=== PATIENT | female | born 1950 | race Caucasian/White ===

== ENCOUNTER 2016-07-27 18:13 | Emergency (ER) | payer MEDICARE, BC ==
[~2016-07-27] VITALS: Ht 167.6 cm; Wt 90.0 kg
[~2016-07-27 18:13] MED LIST: ABIL2TAB2 PO; AMOX875T PO; ARTH650T6 PO; ASPI1TAB69 PO; CALC1TAB87 PO; CYMB60CA PO; HYDR-3580 PO; LISI20TA3 PO; MUCI30TA2 PO; POTA-245 PO; SIMV20TA PO; SUDA30TA2 PO; WEST0.2O TOPICAL
[2016-07-27 18:15] VITALS: BP 177/101; PULSE 127; RESP 22; TEMP 98.3; O2SAT 97
--- NOTE | 2016-07-27 18:41 | PD ---
HPI Chief Complaint: Cold / Flu Symptoms Time Seen by Provider: 18:29 Travel History International Travel<30 days: No Contact w/Intl Traveler<30days: No Traveled to known affect area: No History of Present Illness HPI 65-year-old female here for evaluation of cough, dyspnea, generalized malaise. Symptoms of it going on for last week. She was started on Augmentin one week ago by an urgent care facility. She states that she was seen by the nurse practitioner in her primary care physician's office today who advised that she present to the emergency department for a chest x-ray for likely pneumonia. Cough is nonproductive, however the patient has had rhinorrhea that has been greenish. She denies chest pain. She has had subjective fevers and chills. Dyspnea is at rest, worse with exertion. No history of DVT or PE. She quit smoking in the . [facility] Social History Alcohol Use: Yes Tobacco Use: No (former smoker) Allergies-Medications (Allergen,Severity, Reaction): Coded Allergies: Compazine (Verified Allergy, Severe, 07/27/16) Sulfa (Verified Allergy, Severe, 07/27/16) Reported Meds & Prescriptions Reported Meds & Active Scripts Active Levaquin (Levofloxacin) 500 Mg Tab 500 Mg PO DAILY 7 Days Prednisone 50 Mg Tab 50 Mg PO DAILY 5 Days Reported Amlodipine (Amlodipine Besylate) 10 Mg Tab 10 Mg PO DAILY Cymbalta DR (Duloxetine HCl) 60 Mg Capdr 60 Mg PO HS Sudafed (Pseudoephedrine HCl) 30 Mg Tab 30 Mg PO Q6H PRN Mucinex DM (Dextromethorphan-Guaifenesin) 30-600 Mg Tab 1 Tab PO BID PRN Amoxicillin 875 Mg Tab 875 Mg PO BID Hydrocodone-Acetaminophen 7.5-325 mg Tab 1 Tab PO Q6H PRN Aspirin 81 Mg Tabdr 81 Mg PO DAILY Lisinopril-Hctz 20-25 Mg Tab 1 Tab PO DAILY Arthritis Pain Reliever ER 8 HR (Acetaminophen) 650 Mg Tab 650 Mg PO Q8HR PRN Abilify (Aripiprazole) 2 Mg Tab 2 Mg PO DAILY Cymbalta DR (Duloxetine HCl) 60 Mg Capdr 60 Mg PO DAILY Simvastatin 20 Mg Tab 20 Mg PO DAILY Klor-Con M20 (Potassium Chloride Microencaps) 20 Meq Tab 20 Meq PO DAILY Calcium 600 with Vitamin D (Calcium Carbonate-Cholecalciferol) 600-400 mg-Unit Tab 1 Tab PO DAILY Review of Systems Except as stated in HPI: all other systems reviewed are Neg Physical Exam Narrative GENERAL: Well-developed, well-nourished, no acute distress. SKIN: Warm and dry. HEAD: Atraumatic. Normocephalic. EYES: Pupils equal and round. No scleral icterus. No injection or drainage. ENT: Mucous membranes pink and moist. NECK: Trachea midline. No JVD. CARDIOVASCULAR: Regular rate and rhythm. No murmur appreciated. RESPIRATORY: Coughing. Coarse breath sounds bilaterally with end expiratory wheezes bilaterally, no rales, no accessory muscle use. Speaking full sentences. GASTROINTESTINAL: Abdomen soft, non-tender, nondistended. MUSCULOSKELETAL: No obvious deformities. No clubbing. No cyanosis. No edema. NEUROLOGICAL: Awake and alert. No obvious cranial nerve deficits. Motor grossly within normal limits. Normal speech. PSYCHIATRIC: Appropriate mood and affect; insight and judgment normal. Data Data Last Documented VS Vital Signs Date Time Temp Pulse Resp B/P Pulse Ox O2 Delivery O2 Flow Rate FiO2 07/27/16 19:00 94 Room Air 07/27/16 18:54 21 07/27/16 18:45 93 18 142/79 07/27/16 18:15 98.3 Orders Complete Blood Count With Diff (07/27/16 18:32) Comprehensive Metabolic Panel (07/27/16 18:32) B-Type Natriuretic Peptide (07/27/16 18:32) Act Partial Throm Time (Ptt) (07/27/16 18:32) Prothrombin Time / Inr (Pt) (07/27/16 18:32) Influenzae A/B Antigen (07/27/16 18:32) Blood Culture (07/27/16 18:32) Iv Access Insert/Monitor (07/27/16 18:32) Ecg Monitoring (07/27/16 18:32) Oximetry (07/27/16 18:32) Oxygen Administration (07/27/16 18:32) Chest, Single Ap (07/27/16 18:32) Sodium Chloride 0.9% Flush (Ns Flush) (07/27/16 18:45) Methylprednisolone So Succ Inj (Solumedr (07/27/16 18:45) Albuterol-Ipratropium Neb (Duoneb Neb) (07/27/16 18:45) Lactic Acid (07/27/16 18:32) Sodium Chlor 0.9% 1000 Ml Inj (Ns 1000 M (07/27/16 19:45) Electrocardiogram (07/27/16 ) Potassium Chloride (Kcl) (07/27/16 21:30) Levofloxacin (Levaquin) (07/27/16 21:30) Labs Laboratory Tests Test 07/27/16 18:55 White Blood Count 12.4 TH/MM3 Red Blood Count 4.42 MIL/MM3 Hemoglobin 13.2 GM/DL Hematocrit 38.3 % Mean Corpuscular Volume 86.7 FL Mean Corpuscular Hemoglobin 30.0 PG Mean Corpuscular Hemoglobin 34.6 % Concent Red Cell Distribution Width 13.2 % Platelet Count 211 TH/MM3 Mean Platelet Volume 8.8 FL Neutrophils (%) (Auto) 73.0 % Lymphocytes (%) (Auto) 17.3 % Monocytes (%) (Auto) 6.5 % Eosinophils (%) (Auto) 2.5 % Basophils (%) (Auto) 0.7 % Neutrophils # (Auto) 9.0 TH/MM3 Lymphocytes # (Auto) 2.1 TH/MM3 Monocytes # (Auto) 0.8 TH/MM3 Eosinophils # (Auto) 0.3 TH/MM3 Basophils # (Auto) 0.1 TH/MM3 CBC Comment DIFF FINAL Differential Comment Prothrombin Time 11.2 SEC Prothromb Time International 1.0 RATIO Ratio Activated Partial 29.7 SEC Thromboplast Time Sodium Level 141 MEQ/L Potassium Level 2.8 MEQ/L Chloride Level 102 MEQ/L Carbon Dioxide Level 30.8 MEQ/L Anion Gap 8 MEQ/L Blood Urea Nitrogen 17 MG/DL Creatinine 1.03 MG/DL Estimat Glomerular Filtration 54 ML/MIN Rate Random Glucose 162 MG/DL Lactic Acid Level 1.3 mmol/L Calcium Level 9.3 MG/DL Total Bilirubin 0.6 MG/DL Aspartate Amino Transf 18 U/L (AST/SGOT) Alanine Aminotransferase 25 U/L (ALT/SGPT) Alkaline Phosphatase 76 U/L B-Type Natriuretic Peptide 7 PG/ML Total Protein 7.7 GM/DL Albumin 4.2 GM/DL MDM Medical Decision Making Medical Screen Exam Complete: Yes Emergency Medical Condition: Yes Medical Record Reviewed: Yes Interpretation(s) EKG: Sinus, rate 101, leftward axis, normal intervals, frequent supraventricular premature complexes, no acute ischemic abnormality. Differential Diagnosis Bronchitis, pneumonia, reactive airway disease, pulmonary edema, PE, pneumothorax Narrative Course Initial vital signs show heart rate 127, blood pressure 177/101, pulse ox 97% on room air, oral temp of 98.3F. The patient had just received an albuterol nebulized treatment prior to arrival, likely contributing to her tachycardia. Repeat heart rate is 93. CBC is essentially unremarkable. CMP is remarkable for potassium 2.8, random glucose 162, otherwise essentially unremarkable Lactic acid is 1.3. Influenza is negative. Chest x-ray: Trace bibasilar atelectasis The patient was given 3 DuoNeb treatments and IV Solu-Medrol. She is feeling somewhat improved and is resting comfortably. She is in no respiratory distress. Potassium replaced orally. Patient feels well enough to go home. She already has an albuterol inhaler. I will give her a prescription for Levaquin and prednisone. PMD follow-up this week. She was informed on when to return to the emergency department. She verbalizes understanding and agreement with plan. Diagnosis Primary Impression: Bronchitis Additional Impression: Hypokalemia Referrals: Primary Care Physician 3 days Additional Instructions: Follow-up with your primary care physician this week. Take medications as prescribed. Return to the emergency department for worsening symptoms or any other concerns. Scripts Levofloxacin (Levaquin)500 Mg [id number] Mg PO DAILY 7 Days Ref 0 Prov:Rodrigo Hsieh MD 07/27/16 Prednisone 50 Mg Tab50 Mg PO DAILY 5 Days Ref 0 Prov:Rodrigo Hsieh MD 07/27/16 Disposition: 01 DISCHARGE HOME Condition: Stable Rodrigo Hsieh MD Jul 27, 2016 18:41
[2016-07-27 18:45] VITALS: BP 142/79; PULSE 93; RESP 18; O2SAT 94
[2016-07-27] MEDS ORDERED: SODIUM CHLORIDE 0.9% FLUSH 5 ML FLUSH IVF PRN (18:45)
[2016-07-27] MEDS ORDERED: CYMB60CA PO (18:45)
[2016-07-27] MEDS ORDERED: methylPREDNISolone SOD SUCC 125 MG/2 ML VIAL IVP ONE (18:45)
[2016-07-27] MEDS ORDERED: AMLO10TA2 PO (18:45)
[2016-07-27] MEDS: RESP: ALBUTEROL 2.5 MG/IPRATROPIUM 0.5 MG NEB (SCH) INH ×2 (18:50→18:51)
[2016-07-27 18:54] VITALS: O2SAT 93
[2016-07-27 19:00] VITALS: O2SAT 94
[2016-07-27 19:18] LABS: BASOPHIL # 0.1 TH/MM3 (0-0.2); BASOPHIL % 0.7 % (0.0-2.0); EOSINOPHIL # 0.3 TH/MM3 (0-0.4); EOSINOPHIL % 2.5 % (0.0-4.0); HEMATOCRIT 38.3 % (35.0-46.0); HEMO FLAGS DIFF FINAL; LYMPH % 17.3 % (9.0-44.0); LYMPHOCYTE # 2.1 TH/MM3 (1.0-4.8); MEAN CELL VOLUME 86.7 FL (80.0-100.0); MEAN CORPUSCULAR HGB CONC 34.6 % (32.0-36.0); MONO % 6.5 % (0.0-8.0); PLATELET COUNT 211 TH/MM3 (150-450); RED BLOOD COUNT 4.42 MIL/MM3 (4.00-5.30); RED CELL DISTRIBUTION WIDTH 13.2 % (11.6-17.2); WHITE BLOOD COUNT 12.4 TH/MM3 (4.0-11.0)
[2016-07-27 19:32] LABS: APTT (PATIENT) 29.7 SEC (24.3-30.1); PROTHROMBIN TIME - PATIENT 11.2 SEC (9.8-11.6)
--- NOTE | 2016-07-27 19:33 | RADRPT ---
EXAM DATE/TIME: 07/27/2016 18:45 [facility] COMPARISON: No previous studies available for comparison. INDICATIONS : Shortness of breath and congestion for five days. MEDICAL HISTORY : Ovarian cancer. SURGICAL HISTORY : None. ENCOUNTER: Initial ACUITY: 4 - 6 days PAIN SCORE: 4/10 LOCATION: Bilateral chest FINDINGS: Trace atelectasis seen in the bases. No infiltrate. No pleural effusion or pneumothorax. Heart size n ormal. No free air seen in the upper abdomen. CONCLUSION: Trace bibasilar atelectasis. Yobani Sebastian MD on July 27, 2016 at 19:31 Board Certified Radiologist. This report was verified electronically.
[2016-07-27] MEDS ORDERED: SODIUM CHLOR 0.9% 1000 ML INJ 1,000 ML IV ONE (19:45)
[2016-07-27 21:09] LABS: ALKALINE PHOSPHATASE 76 U/L (45-117); ALT (GPT) 25 U/L (10-53); ANION GAP 8 MEQ/L (5-15); AST (GOT) 18 U/L (15-37); BICARBONATE 30.8 MEQ/L (21.0-32.0); BLOOD UREA NITROGEN 17 MG/DL (7-18); CHLORIDE 102 MEQ/L (98-107); GLOMERULAR FILTRATION RATE 54 ML/MIN (>89); SODIUM (NA) 141 MEQ/L (136-145); TOTAL BILIRUBIN ADULT 0.6 MG/DL (0.2-1.0)
[2016-07-27 21:19] LABS: POTASSIUM 2.8 MEQ/L (3.5-5.1)
[2016-07-27] MEDS ORDERED: LEVA500T PO (21:27)
[2016-07-27] MEDS ORDERED: PRED50 PO (21:27)
[2016-07-27] MEDS ORDERED: LEVOFLOXACIN 500 MG TAB PO ONE (21:30)
[2016-07-27] MEDS ORDERED: POTASSIUM CHLORIDE 20 MEQ CONTROLLED RELEASE TAB PO ONE (21:30)
--- NOTE | 2016-07-28 22:20 | EKG ---
Date Performed: 07/27/2016 Time Performed: 19:56:04 PTAGE: 65 years EKG: SINUS TACHYCARDIA WITH FREQUENT SUPRAVENTRICULAR PREMATURE COMPLEXES BORDERLINE LEFT AXIS D EVIATION ABNORMAL RHYTHM ECG NO PREVIOUS TRACING DOCTOR: Harshal Berumen Interpretating Date/Time 07/28/2016 22:18:34
[2016-07-30] MEDS ORDERED: ALBUAER3 INH (13:21)
[2016-08-03] MEDS ORDERED: FLUT1SPR5 EACH NARE (15:44)
[2016-08-03] MEDS ORDERED: ADVA250A INH (15:44)
[2016-08-06] MEDS ORDERED: CLAR2.5T PO (09:45)
[2016-08-06] MEDS ORDERED: POTA-245 PO (11:26)
[2016-09-02] MEDS ORDERED: LYRI150C PO (14:36)
[2016-09-02] MEDS ORDERED: LOSA50TA PO (15:01)
== END 2016-07-27 21:54 | disposition home or self-care (01) ==
LOC: NEPA 18:13
DX: J40 Bronchitis, not specified as acute or chronic (principal); F10.10 Alcohol abuse, uncomplicated; R00.0 Tachycardia, unspecified
CPT/HCPCS: 71010; 80053; 83605; 83880; 85025; 85610; 85730; 87040; 87804; 93005; 94640; 94664; 96374; 99284; J2930; J7030

== ENCOUNTER 2017-08-13 12:43 | Inpatient (IN) | payer MEDICARE, BC ==
[~2017-08-13] VITALS: Ht 167.6 cm; Wt 84.0 kg
[~2017-08-13 12:43] MED LIST changes: -ABIL2TAB2 PO; +ADVA250A INH; +ALBUAER3 INH; +AMLO10TA2 PO; -AMOX875T PO; +ARIP2 PO; +FLUT1SPR5 EACH NARE; +KLOR20TA3 PO; -LISI20TA3 PO; +LOSA50TA PO; +LYRI150C PO; -MUCI30TA2 PO; -POTA-245 PO; -SUDA30TA2 PO; -WEST0.2O TOPICAL
[2017-08-13] MEDS ORDERED: IOHEXOL 350 MG/ML 10 ML VIAL (for RAD DIAG) IVCONTRAST ONE (12:44)
[2017-08-13 14:18] VITALS: BP 106/62; PULSE 86; RESP 16; TEMP 99.2; O2SAT 96
[2017-08-13 16:04] LABS: AUTOMATED NEUTROPHIL # 16.1 TH/MM3 (1.8-7.7); BASOPHIL # 0.1 TH/MM3 (0-0.2); BASOPHIL % 0.4 % (0.0-2.0); EOSINOPHIL # 0.1 TH/MM3 (0-0.4); EOSINOPHIL % 0.5 % (0.0-4.0); HEMATOCRIT 31.6 % (35.0-46.0); HEMOGLOBIN 10.7 GM/DL (11.6-15.3); LYMPH % 8.1 % (9.0-44.0); LYMPHOCYTE # 1.5 TH/MM3 (1.0-4.8); MEAN CELL VOLUME 86.7 FL (80.0-100.0); MEAN CORPUSCULAR HEMOGLOBIN 29.3 PG (27.0-34.0); MEAN CORPUSCULAR HGB CONC 33.8 % (32.0-36.0); MEAN PLATELET VOLUME 8.5 FL (7.0-11.0); MONO % 6.7 % (0.0-8.0); MONOCYTE # 1.3 TH/MM3 (0-0.9); NEUT % 84.3 % (16.0-70.0); PLATELET COUNT 401 TH/MM3 (150-450); RED BLOOD COUNT 3.64 MIL/MM3 (4.00-5.30); RED CELL DISTRIBUTION WIDTH 13.2 % (11.6-17.2)
[2017-08-13 16:11] LABS: ALBUMIN 2.9 GM/DL (3.4-5.0); ALT (GPT) 86 U/L (10-53); AST (GOT) 76 U/L (15-37); BICARBONATE 31.7 MEQ/L (21.0-32.0); BLOOD UREA NITROGEN 32 MG/DL (7-18); CALCIUM 8.9 MG/DL (8.5-10.1); CHLORIDE 96 MEQ/L (98-107); CREATININE 1.21 MG/DL (0.50-1.00); GLOMERULAR FILTRATION RATE 45 ML/MIN (>89); GLUCOSE,RANDOM 95 MG/DL (74-106); SODIUM (NA) 135 MEQ/L (136-145)
[2017-08-13 16:11] LABS: BILIRUBIN, URINE NEG (NEG); BLOOD, URINE SMALL (NEG); GLUCOSE,URINE NEG (NEG); HYALINE CAST, URINE 12 /lpf (RARE); KETONE, URINE NEG (NEG); NITRITE,URINE NEG (NEG); PH, URINE 5.5 (5.0-8.5); SQUAMOUS EPITHELIAL CELL URINE 2 /hpf (0-5); URINE COLOR YELLOW (YELLW/STRAW); URINE LEUKOCYTE ESTERASE MOD (NEG)
[2017-08-13 16:19] LABS: ALKALINE PHOSPHATASE 180 U/L (45-117); TOTAL BILIRUBIN ADULT 0.8 MG/DL (0.2-1.0); TOTAL PROTEIN 7.2 GM/DL (6.4-8.2)
--- NOTE | 2017-08-13 16:39 | PD ---
HPI Chief Complaint: Neuro Symptoms/ Deficits Time Seen by Provider: 16:39 Travel History International Travel<30 days: No Contact w/Intl Traveler<30days: No Traveled to known affect area: No History of Present Illness HPI Main reason patient comes in today is because she feels some tingling on her hands. However she failed to mention that yesterday and today she has had some abdominal discomfort, felt constipated yesterday and took some magnesium CITRATE because she felt like "she could not fit anything else in there unless she {evacuated} something". Patient states allergy to sulfa and prochlorperazine Patient's past medical history and surgical history significant for tonsillectomy hyperlipidemia hypertension back fusion neck fusion appendectomy hysterectomy previous history of ovarian CVA along with chemo treatment. PFSH Past Medical History Hx Anticoagulant Therapy: No Arthritis: Yes Cardiovascular Problems: No Chemotherapy: Yes Cerebrovascular Accident: No Diabetes: No Hypertension: Yes Respiratory: No Triglycerides - High: Yes ?: Unknown Ovarian Cysts: Yes (cancerous tumor removed) Past Surgical History Appendectomy: Yes Hysterectomy: Yes Thoracic Surgery: Yes (back fusion 2013, neck fusion 2003) Tonsillectomy: Yes Other Surgery: Yes (lymphocyst removal 1995, umbilical hernia repair) Social History Alcohol Use: Yes Tobacco Use: No (former smoker) Substance Use: No Allergies-Medications (Allergen,Severity, Reaction): Coded Allergies: Sulfa (Sulfonamide Antibiotics) (Verified Allergy, Severe, rash, 08/13/17) prochlorperazine (Verified Allergy, Severe, rash, 08/13/17) Reported Meds & Prescriptions Reported Meds & Active Scripts Active Klor-Con M20 (Potassium Chloride Microencaps) 20 Meq Tab 20 Meq PO BID Reported Lisinopril 20 Mg Tab 20 Mg PO DAILY Flexeril (Cyclobenzaprine HCl) 10 Mg Tab 10 Mg PO TID Hydrocodone-Acetaminophen 7.5 Mg-325 Mg Tab 1 Tab PO Q6H PRN Trulance (Plecanatide) 3 Mg Tablet 3 PO DAILY Lyrica (Pregabalin) 150 Mg Cap 150 Mg PO BID Amlodipine (Amlodipine Besylate) 10 Mg Tab 10 Mg PO DAILY Abilify (Aripiprazole) 2 Mg Tab 2 Mg PO DAILY Cymbalta DR (Duloxetine HCl) 60 Mg Capdr 60 Mg PO DAILY Review of Systems General / Constitutional: No: Fever Eyes: No: Visual changes HENT: No: Headaches Cardiovascular: No: Chest Pain or Discomfort Respiratory: No: Shortness of Breath Gastrointestinal: Positive: Abdominal Pain Genitourinary: No: Dysuria Musculoskeletal: No: Pain Skin: No Rash Neurologic: No: Weakness Psychiatric: No: Depression Endocrine: No: Polydipsia Hematologic/Lymphatic: No: Easy Bruising Physical Exam Narrative GENERAL: SKIN: Warm and dry. HEAD: Atraumatic. Normocephalic. EYES: Pupils equal and round. No scleral icterus. No injection or drainage. ENT: No nasal bleeding or discharge. Mucous membranes pink and moist. NECK: Trachea midline. No JVD. CARDIOVASCULAR: Regular rate and rhythm. RESPIRATORY: No accessory muscle use. Clear to auscultation. Breath sounds equal bilaterally. GASTROINTESTINAL: Abdomen soft, non-tender, nondistended. MID ABD MASS? MUSCULOSKELETAL: Extremities without clubbing, cyanosis, or edema. No obvious deformities. NEUROLOGICAL: Awake and alert. No obvious cranial nerve deficits. Motor grossly within normal limits. Five out of 5 muscle strength in the arms and legs. Normal speech. PSYCHIATRIC: Appropriate mood and affect; insight and judgment normal. Data Data Last Documented VS Orders Orders Complete Blood Count With Diff (08/13/17 14:39) Comprehensive Metabolic Panel (08/13/17 14:39) Urinalysis - C+S If Indicated (08/13/17 14:39) Chest, Single Ap (08/13/17 16:55) Ct Abd/Pel W Iv Contrast(Rout) (08/13/17 16:55) Potassium Chlor 20 Meq Premix (Kcl 20 Me (08/13/17 18:15) Iohexol 350 Inj (Omnipaque 350 Inj) (08/13/17 12:44) Ceftriaxone Inj (Rocephin Inj) (08/13/17 19:15) Vancomycin Inj (Vancomycin Inj) (08/13/17 20:45) Potassium Chloride (Kcl) (08/13/17 21:00) Sodium Chlor 0.9% 1000 Ml Inj (Ns 1000 M (08/13/17 21:00) Admit Order (Ed Use Only) (08/13/17 20:52) Lipase (08/13/17 14:43) Labs Laboratory Tests Test 08/13/17 14:43 3/10/18 15:00 White Blood Count 19.0 TH/MM3 Red Blood Count 3.64 MIL/MM3 Hemoglobin 10.7 GM/DL Hematocrit 31.6 % Mean Corpuscular Volume 86.7 FL Mean Corpuscular Hemoglobin 29.3 PG Mean Corpuscular Hemoglobin Concent 33.8 % Red Cell Distribution Width 13.2 % Platelet Count 401 TH/MM3 Mean Platelet Volume 8.5 FL Neutrophils (%) (Auto) 84.3 % Lymphocytes (%) (Auto) 8.1 % Monocytes (%) (Auto) 6.7 % Eosinophils (%) (Auto) 0.5 % Basophils (%) (Auto) 0.4 % Neutrophils # (Auto) 16.1 TH/MM3 Lymphocytes # (Auto) 1.5 TH/MM3 Monocytes # (Auto) 1.3 TH/MM3 Eosinophils # (Auto) 0.1 TH/MM3 Basophils # (Auto) 0.1 TH/MM3 CBC Comment DIFF FINAL Differential Comment Blood Urea Nitrogen 32 MG/DL Creatinine 1.21 MG/DL Random Glucose 95 MG/DL Total Protein 7.2 GM/DL Albumin 2.9 GM/DL Calcium Level 8.9 MG/DL Alkaline Phosphatase 180 U/L Aspartate Amino Transf (AST/SGOT) 76 U/L Alanine Aminotransferase (ALT/SGPT) 86 U/L Total Bilirubin 0.8 MG/DL Sodium Level 135 MEQ/L Potassium Level 2.8 MEQ/L Chloride Level 96 MEQ/L Carbon Dioxide Level 31.7 MEQ/L Anion Gap 7 MEQ/L Estimat Glomerular Filtration Rate 45 ML/MIN Lipase 51 U/L Urine Color YELLOW Urine Turbidity CLEAR Urine pH 5.5 Urine Specific [place] 1.019 Urine Protein TRACE mg/dL Urine Glucose (UA) NEG mg/dL Urine Ketones NEG mg/dL Urine Occult Blood SMALL Urine Nitrite NEG Urine Bilirubin NEG Urine Urobilinogen 4.0 MG/DL Urine Leukocyte Esterase MOD Urine RBC 17 /hpf Urine WBC 4 /hpf Urine Squamous Epithelial Cells 2 /hpf Urine Hyaline Casts 12 /lpf Microscopic Urinalysis Comment CULT NOT INDICATED MDM Medical Decision Making Medical Screen Exam Complete: Yes Emergency Medical Condition: Yes Medical Record Reviewed: Yes Differential Diagnosis Pancreatitis versus abdominal mass versus pancreatic pseudocyst versus electrolyte imbalance Narrative Course CBC reveals a leukocytosis of 19,000 with left shift of 84% neutrophilia. Anemia of 10.7/31.6. Normal platelet count. UA reveals moderate leukocytosis leukocyte esterase, only 2 squamous squamous epithelial cells noted I believe this is consistent with UTI pattern Chemistry profile reveals hypokalemia of 2.8 prerenal azotemia with a BUN of 32 creatinine 1.1 and GFR 45, Signed out to oncoming physician pending CT rule out mass Based on her other abnormal lab findings recommend at least an observation status admission Diagnosis Primary Impression: Possible abdominal mass Additional Impression: Hypokalemia Admitting Information Admitting Physician Requests: Observation Scripts Metronidazole (Flagyl) 500 Mg Tab 500 MG PO TID for Infection for 7 Days, TAB 0 Refills Prov: Cruz Sarabia MD 08/16/17 Ciprofloxacin (Cipro) 500 Mg Tab 500 MG PO BID for Infection for 7 Days, #14 TAB 0 Refills Prov: Cruz Sarabia MD 08/16/17 Aspirin (Aspirin) 81 Mg Chew 81 MG PO DAILY@1600 for antiplatelet for 30 Days, TAB 0 Refills when ok with GI. Prov: Cruz Sarabia MD 08/16/17 Shiv Matos MD Aug 13, 2017 16:39
[2017-08-13] MEDS ORDERED: ASPI-516 PO (16:59)
[2017-08-13] MEDS ORDERED: CYCL10TA PO (16:59)
[2017-08-13] MEDS ORDERED: HYDR-3580 PO (16:59)
[2017-08-13] MEDS ORDERED: PLEC3TAB PO (16:59)
[2017-08-13] MEDS ORDERED: LISI-515 PO (16:59)
[2017-08-13 17:06] VITALS: BP 103/60; PULSE 108; RESP 18; TEMP 98.3; O2SAT 97
--- NOTE | 2017-08-13 17:32 | RADRPT ---
EXAM DATE/TIME: 08/13/2017 17:14 [facility] COMPARISON: CHEST SINGLE AP, July 27, 2016, 18:45. INDICATIONS : Syncope. Cough. MEDICAL HISTORY : Hypertension. Ovarian cancer. SURGICAL HISTORY : Fusion, cervical. ENCOUNTER: Initial ACUITY: 1 week PAIN SCORE: 0/10 LOCATION: Bilateral chest FINDINGS: A single view of the chest demonstrates the lungs to be symmetrically aerated without evidence of mas s, infiltrate or effusion. The cardiomediastinal contours are unremarkable. Osseous structures are intact. Orthopedic hardware is partially seen involving the lower cervical spine. CONCLUSION: No acute disease. Fabio Alford Jr., MD on August 13, 2017 at 17:28 Board Certified Radiologist. This report was verified electronically.
[2017-08-13] MEDS ORDERED: POTASSIUM CHLOR 20 MEQ PREMIX 100 ML IV ONE (18:15)
[2017-08-13] MEDS ORDERED: cefTRIAXone INJ 1,000 MG in SODIUM CHLORIDE 0.9% INJ 100 ML IV ONE (19:15)
--- NOTE | 2017-08-13 19:16 | RADRPT ---
EXAM DATE/TIME: 08/13/2017 18:40 [facility] COMPARISON: No previous studies available for comparison. INDICATIONS : Epigastric pain. IV CONTRAST: 97 cc Omnipaque 350 (iohexol) IV ORAL CONTRAST: No oral contrast ingested. RADIATION DOSE: 7.57 CTDIvol (mGy) MEDICAL HISTORY : Cardiovascular disease. Hypertension. Ovarian cancer. SURGICAL HISTORY : Appendectomy. Hysterectomy. ENCOUNTER: Initial ACUITY: 1 day PAIN SCALE: 5/10 LOCATION: Bilateral upper quadrant TECHNIQUE: Volumetric scanning of the abdomen and pelvis was performed. Using automated exposure control and ad justment of the mA and/or kV according to patient size, radiation dose was kept as low as reasonably achievable to obtain optimal diagnostic quality images. DICOM format image data is available electro nically for review and comparison. FINDINGS: There is abnormal mural thickening of the rectum, sigmoid colon and distal left colon with abnormal s tranding of fat around these structures. There is also abnormal free fluid within the pelvis. There i s severe constipation the more proximal colon especially the transverse colon and right colon. Lung bases are clear no acute findings in the liver, spleen, adrenals, kidneys or pancreas. No calcif ied gallstones. There is previous appendectomy and hysterectomy. Previous fusion lower lumbar spine. CONCLUSION: 1. Abnormal mural thickening of the distal left colon, sigmoid colon and rectum with extensive heidy-c olonic and heidy-rectal fat stranding and complex free fluid in the deep pelvis. Primary differential diagnosis is a distal colitis and proctitis. There is a reported history of ovarian cancer and cannot exclude tumor infiltration. This would be better evaluated colonoscopically. There is severe constip ation and proximal colon which is dilated up to 8.5 cm in diameter. Miguel Ortega MD on August 13, 2017 at 19:09 Board Certified Radiologist. This report was verified electronically.
[2017-08-13 19:40] VITALS: BP_SYST 99; BP_DIAS 5; BP_DIAS 56; PULSE 87; RESP 16; O2SAT 97
--- NOTE | 2017-08-13 20:21 | PD ---
Physical Exam Narrative Received sign out from previous team to follow up CT a/p and admit. 66yo F with ovarian tumor s/p bilateral oopherectomy and hysterectomy in 1994 here with left lower abdominal pain for 1 day. Denies any fever, n/v, chest pain, sob. Pt has had tingling in bilateral fingers for years. CT a/p showed abnormal mural thickening of the distal left colon, sigmoid colon and rectum with extensive heidy-colonic and heidy-rectal fat stranding and complex free fluid in deep pelvis. Primary differential diagnosis is a distal colitis and proctitis. Labs reviewed, pt with leukocytosis at 19,000. H/H low at 10.7/31.6. Hypokalemia at 2.8, replaced with IV 20KCl, will add PO KCl too. BUN/creatinine elevated, will give NS IVF. UA showed moderate leukocyte and previous team gave her ceftriaxone. Discussed with Dr. Geller and accepted to her service. Data Data Last Documented VS Vital Signs Date Time Temp Pulse Resp B/P (MAP) Pulse Ox O2 Delivery O2 Flow Rate FiO2 08/13/17 19:40 87 16 99/56 (70) 97 Room Air 08/13/17 17:06 98.3 Orders Orders Complete Blood Count With Diff (08/13/17 14:39) Comprehensive Metabolic Panel (08/13/17 14:39) Urinalysis - C+S If Indicated (08/13/17 14:39) Chest, Single Ap (08/13/17 16:55) Ct Abd/Pel W Iv Contrast(Rout) (08/13/17 16:55) Potassium Chlor 20 Meq Premix (Kcl 20 Me (08/13/17 18:15) Iohexol 350 Inj (Omnipaque 350 Inj) (08/13/17 12:44) Ceftriaxone Inj (Rocephin Inj) (08/13/17 19:15) Vancomycin Inj (Vancomycin Inj) (08/13/17 20:45) Potassium Chloride (Kcl) (08/13/17 21:00) Sodium Chlor 0.9% 1000 Ml Inj (Ns 1000 M (08/13/17 21:00) Admit Order (Ed Use Only) (08/13/17 20:52) Lipase (08/13/17 14:43) Labs Laboratory Tests Test 08/13/17 14:43 08/13/17 15:00 White Blood Count 19.0 TH/MM3 Red Blood Count 3.64 MIL/MM3 Hemoglobin 10.7 GM/DL Hematocrit 31.6 % Mean Corpuscular Volume 86.7 FL Mean Corpuscular Hemoglobin 29.3 PG Mean Corpuscular Hemoglobin Concent 33.8 % Red Cell Distribution Width 13.2 % Platelet Count 401 TH/MM3 Mean Platelet Volume 8.5 FL Neutrophils (%) (Auto) 84.3 % Lymphocytes (%) (Auto) 8.1 % Monocytes (%) (Auto) 6.7 % Eosinophils (%) (Auto) 0.5 % Basophils (%) (Auto) 0.4 % Neutrophils # (Auto) 16.1 TH/MM3 Lymphocytes # (Auto) 1.5 TH/MM3 Monocytes # (Auto) 1.3 TH/MM3 Eosinophils # (Auto) 0.1 TH/MM3 Basophils # (Auto) 0.1 TH/MM3 CBC Comment DIFF FINAL Differential Comment Blood Urea Nitrogen 32 MG/DL Creatinine 1.21 MG/DL Random Glucose 95 MG/DL Total Protein 7.2 GM/DL Albumin 2.9 GM/DL Calcium Level 8.9 MG/DL Alkaline Phosphatase 180 U/L Aspartate Amino Transf (AST/SGOT) 76 U/L Alanine Aminotransferase (ALT/SGPT) 86 U/L Total Bilirubin 0.8 MG/DL Sodium Level 135 MEQ/L Potassium Level 2.8 MEQ/L Chloride Level 96 MEQ/L Carbon Dioxide Level 31.7 MEQ/L Anion Gap 7 MEQ/L Estimat Glomerular Filtration Rate 45 ML/MIN Lipase 51 U/L Urine Color YELLOW Urine Turbidity CLEAR Urine pH 5.5 Urine Specific [place] 1.019 Urine Protein TRACE mg/dL Urine Glucose (UA) NEG mg/dL Urine Ketones NEG mg/dL Urine Occult Blood SMALL Urine Nitrite NEG Urine Bilirubin NEG Urine Urobilinogen 4.0 MG/DL Urine Leukocyte Esterase MOD Urine RBC 17 /hpf Urine WBC 4 /hpf Urine Squamous Epithelial Cells 2 /hpf Urine Hyaline Casts 12 /lpf Microscopic Urinalysis Comment CULT NOT INDICATED MDM Supervised Visit with NATALY: No Diagnosis Primary Impression: Hypokalemia Additional Impression: Colitis Admitting Information Admitting Physician Requests: Admit Elisha Bazan DO Aug 13, 2017 20:21
[2017-08-13] MEDS ORDERED: LACTULOSE SYRUP 20 GM/30 ML CUP PO PRN (20:45)
[2017-08-13] MEDS ORDERED: MAGNESIUM HYDROXIDE SUSP 30 ML CUP PO PRN (20:45)
[2017-08-13] MEDS ORDERED: MORPHINE SULFATE 2 MG/ML INJ IV PUSH PRN (20:45)
[2017-08-13] MEDS ORDERED: ACETAMINOPHEN 325 MG TAB PO PRN (20:45)
[2017-08-13] MEDS ORDERED: BISACODYL 10 MG SUPP RECTAL PRN (20:45)
[2017-08-13] MEDS ORDERED: VANCOMYCIN INJ 1,251 MG in SODIUM CHLORID 0.9% 500 ML INJ 500 ML IV ONE (20:45)
[2017-08-13] MEDS ORDERED: ONDANSETRON HCL 4 MG/2 ML VIAL IVP PRN (20:45)
[2017-08-13] MEDS ORDERED: SENNOSIDES 8.6 MG TAB PO PRN (20:45)
--- NOTE | 2017-08-13 20:54 | HHI.HP ---
[facility] Service [facility] Primary Care Physician Erika Clark, PIPELINE ENGINEER Admission Diagnosis Colitis, hypokalemia Diagnoses: (1) Sepsis Diagnosis: Principal (2) Colitis Diagnosis: Principal (3) Intractable pain Diagnosis: Principal (4) Renal insufficiency Diagnosis: Principal (5) Hypokalemia Diagnosis: Principal Travel History International Travel<30 Days: No Contact w/Intl Traveler <30 Da: No Traveled to Known Affected Are: No History of Present Illness This is a 66-year-old female with a PMH of HTN and Ovarian CA s/p Hysterectomy/ Chemo () and Arthritis who presented to the ER w/ complaints of abdominal pain, distention and constipation. States symptoms have been ongoing for approx 2 days. Pain is intermittent, cramping, 8/10, non-radiating, no alleviating factors. Denies nausea, vomiting or diarrhea. Took Mg Citrate at home w/ minimal relief. Denies fever or chills. On arrival, BP 106/62, HR 106 , O2 sat 99% on RA, Temp 99.2. WBC 19. K+ 2.8. Creatinine 1.21, P recent 1.03 on 07/27/16. INR 1.0. UA negative. CXR with abnormal mural thickening of distal left colon, sigmoid colon and rectum, likely distal colitis and proctitis , cannot exclude tumor infiltration from ovarian CA, recommendation for colonoscopy. S/p Rocephin/Vanc in ER. Review of Systems Except as stated in HPI: all other systems reviewed are Neg ROS: 14 point review of systems otherwise negative. Past Family Social History Past Medical History PMH: HTN and Ovarian CA s/p Hysterectomy/Chemo () and Arthritis Past Surgical History PAST SURGICAL HISTORY: Appendectomy, Hysterectomy, Back Fusion, Neck Fusion, Tonsillectomy Allergies: Coded Allergies: Sulfa (Sulfonamide Antibiotics) (Verified Allergy, Severe, rash, 08/13/17) prochlorperazine (Verified Allergy, Severe, rash, 08/13/17) Family History PAST FAMILY HISTORY: Reviewed. No h/o DM or CAD Social History PAST SOCIAL HISTORY: Physical Exam Vital Signs Vital Signs Date Time Temp Pulse Resp B/P (MAP) Pulse Ox O2 Delivery O2 Flow Rate FiO2 08/13/17 19:40 87 16 99/56 (70) 97 Room Air 08/13/17 17:06 98.3 108 18 103/60 (74) 97 Room Air 08/13/17 17:05 106 16 99 Room Air 08/13/17 14:18 99.2 86 16 106/62 (77) 96 Physical Exam PE: GENERAL: Very pleasant middle-aged white female in no acute distress. HEENT: PERRLA, EOMI. No scleral icterus or conjunctival pallor. No lid lag or facial droop. CARDIOVASCULAR: Regular rate and rhythm. No obvious murmurs to auscultation. No chest tenderness to palpation. RESPIRATORY: No obvious rhonchi or wheezing. Clear to auscultation. Breath sounds equal bilaterally. GASTROINTESTINAL: Abdomen soft, mild distention, diffuse tenderness to palpation. BS normal. MUSCULOSKELETAL: Extremities without clubbing, cyanosis, or edema. No obvious deformities. NEUROLOGICAL: Awake, alert and oriented x4. No focal neurologic deficits. Moving both upper and lower extremities spontaneously. Laboratory Laboratory Tests Test 08/13/17 14:43 08/13/17 15:00 White Blood Count 19.0 Red Blood Count 3.64 Hemoglobin 10.7 Hematocrit 31.6 Mean Corpuscular Volume 86.7 Mean Corpuscular Hemoglobin 29.3 Mean Corpuscular Hemoglobin Concent 33.8 Red Cell Distribution Width 13.2 Platelet Count 401 Mean Platelet Volume 8.5 Neutrophils (%) (Auto) 84.3 Lymphocytes (%) (Auto) 8.1 Monocytes (%) (Auto) 6.7 Eosinophils (%) (Auto) 0.5 Basophils (%) (Auto) 0.4 Neutrophils # (Auto) 16.1 Lymphocytes # (Auto) 1.5 Monocytes # (Auto) 1.3 Eosinophils # (Auto) 0.1 Basophils # (Auto) 0.1 CBC Comment DIFF FINAL Differential Comment Blood Urea Nitrogen 32 Creatinine 1.21 Random Glucose 95 Total Protein 7.2 Albumin 2.9 Calcium Level 8.9 Alkaline Phosphatase 180 Aspartate Amino Transf (AST/SGOT) 76 Alanine Aminotransferase (ALT/SGPT) 86 Total Bilirubin 0.8 Sodium Level 135 Potassium Level 2.8 Chloride Level 96 Carbon Dioxide Level 31.7 Anion Gap 7 Estimat Glomerular Filtration Rate 45 Urine Color YELLOW Urine Turbidity CLEAR Urine pH 5.5 Urine Specific [place] 1.019 Urine Protein TRACE Urine Glucose (UA) NEG Urine Ketones NEG Urine Occult Blood SMALL Urine Nitrite NEG Urine Bilirubin NEG Urine Urobilinogen 4.0 Urine Leukocyte Esterase MOD Urine RBC 17 Urine WBC 4 Urine Squamous Epithelial Cells 2 Urine Hyaline Casts 12 Microscopic Urinalysis Comment CULT NOT INDICATED Result Diagram: 08/13/17 1443 08/13/17 1443 Caprini VTE Risk Assessment Caprini VTE Risk Assessment: No/Low Risk (score <= 1) Caprini Risk Assessment Model Point Value = 1 Point Value = 2 Point Value = 3 Point Value = 5 Age 41-60 Minor surgery BMI > 25 kg/m2 Swollen legs Varicose veins or History of unexplained or recurrent spontaneous Oral contraceptives or hormone replacement Sepsis (< 1 month) Serious lung disease, including pneumonia (< 1 month) Abnormal pulmonary function Acute myocardial infarction Congestive heart failure (< 1 month) History of inflammatory bowel disease Medical patient at bed rest Age 61-74 Arthroscopic surgery Major open surgery (> 45 min) Laparoscopic surgery (> 45 min) Malignancy Confined to bed (> 72 hours) Immobilizing plaster cast Central venous access Age >= 75 History of VTE Family history of VTE Factor V Leiden Prothrombin [id number] Lupus anticoagulant Anticardiolipin antibodies Elevated serum homocysteine Heparin-induced thrombocytopenia Other congenital or acquired thrombophilia Stroke (< 1 month) Elective arthroplasty Hip, pelvis, or leg fracture Acute spinal cord injury (< 1 month) Prophylaxis Regimen Total Risk Factor Score Risk Level Prophylaxis Regimen 0-1 Low Early ambulation 2 Moderate Order ONE of the following: *Sequential Compression Device (SCD) *Heparin 5000 units SQ BID 3-4 Higher Order ONE of the following medications: *Heparin 5000 units SQ TID *Enoxaparin/Lovenox 40 mg SQ daily (WT < 150 kg, CrCl > 30 mL/min) *Enoxaparin/Lovenox 30 mg SQ daily (WT < 150 kg, CrCl > 10-29 mL/min) *Enoxaparin/Lovenox 30 mg SQ BID (WT < 150 kg, CrCl > 30 mL/min) AND/OR *Sequential Compression Device (SCD) 5 or more Highest Order ONE of the following medications: *Heparin 5000 units SQ TID (Preferred with Epidurals) *Enoxaparin/Lovenox 40 mg SQ daily (WT < 150 kg, CrCl > 30 mL/min) *Enoxaparin/Lovenox 30 mg SQ daily (WT < 150 kg, CrCl > 10-29 mL/min) *Enoxaparin/Lovenox 30 mg SQ BID (WT < 150 kg, CrCl > 30 mL/min) AND *Sequential Compression Device (SCD) Assessment and Plan Problem List: (1) Sepsis ICD Code: A41.9 - Sepsis, unspecified organism (2) Colitis ICD Code: K52.9 - Noninfective gastroenteritis and colitis, unspecified Status: Acute (3) Intractable pain ICD Code: R52 - Pain, unspecified (4) Renal insufficiency ICD Code: N28.9 - Disorder of kidney and ureter, unspecified (5) Hypokalemia ICD Code: E87.6 - Hypokalemia Status: Acute Assessment and Plan A/P: 1. Sepsis: Temp 99, HR 106, WBC 19, Source-Colitis. Continue IV Abx, IVF for hydration, repeat labs, monitor vitals. 2. Colitis: CT Abd/Pelvis w/ diffuse wall thickening consistent w/ colitis/ proctitis, however possible tumor extension from h/o ovarian ca, images reviewed by me. IV Zosyn, IVF, Consult GI for further evaluation likely colonoscopy. 3. Intractable Pain: secondary to above, analgesics/antiemetics as needed, Pepcid IV, GI Cocktail 4. Hypokalemia: K+ 2.8, s/p replacement, will recheck and replace as needed. 5. Renal Insufficiency: Creatinine 1.21, previously 1.03 on 07/27/16. UA with moderate LE, bacteriuria and hematuria, will continue with empiric treatment of UTI. 6. DVT Prophylaxis: SCD/teds. 7. Social work for DC planning as needed. 8. Case discussed at length with ER physician, lab/records/imaging reviewed by me. Physician Certification 2 Midnight Certification Type: Admission for Inpatient Services Order for Inpatient Services The services are ordered in accordance with Medicare regulations or non- Medicare payer requirements, as applicable. In the case of services not specified as inpatient-only, they are appropriately provided as inpatient services in accordance with the 2-midnight benchmark. Estimated LOS (days): 2 days is the estimated time the patient will need to remain in the hospital, assuming treatment plan goals are met and no additional complications. Post-Hospital Plan: Not yet determined Aylin Geller MD Aug 13, 2017 20:54
[2017-08-13] MEDS ORDERED: SODIUM CHLOR 0.9% 1000 ML INJ 1,000 ML IV ONE (21:00)
[2017-08-13] MEDS ORDERED: POTASSIUM CHLORIDE 20 MEQ CONTROLLED RELEASE TAB PO ONE (21:00)
[2017-08-13] MEDS: SODIUM CHLORIDE 0.9% FLUSH 10 ML FLUSH IV FLUSH SCH (21:00)
[2017-08-13] MEDS: DOCUSATE SODIUM 50 MG/SENNA 8.6 MG TAB PO SCH (21:00)
[2017-08-13 21:48] VITALS: BP 93/57; PULSE 77; RESP 18; TEMP 97.9; O2SAT 98
[2017-08-13] MEDS: SODIUM CHLOR 0.9% 1000 ML INJ 1,000 ML IV SCH (21:51)
[2017-08-13] MEDS: PREGABALIN 75 MG CAP PO SCH (21:55)
[2017-08-13] MEDS: ACETAMINOPHEN/HYDROcodone 325 MG/5 MG TAB PO PRN (21:58)
[2017-08-13] MEDS ORDERED: ATROPINE/SCOPOLAM/HYOSCYAM/PB ELIXIR 10 ML CUP PO PRN (22:15)
[2017-08-13] MEDS ORDERED: ALUMINUM/MAGNESIUM/SIMETH 30 ML CUP PO PRN (22:15)
[2017-08-13] MEDS ORDERED: LIDOCAINE VISCOUS 2% SOLN 15 ML UDC SWISH-SWAL PRN (22:15)
[2017-08-13 23:13] VITALS: BP_SYST 132; BP_SYST 98; BP_DIAS 55; BP_DIAS 69; PULSE 76; PULSE 83; RESP 18; TEMP 96.7; TEMP 98.5; O2SAT 97; O2SAT 99
[2017-08-14] MEDS: FAMOTIDINE 20 MG/2 ML VIAL IV PUSH SCH ×3 (00:25→22:33)
[2017-08-14] MEDS: PIPERACIL-TAZO 4.5 GM PREMIX 100 ML IV SCH ×5 (00:25→23:46)
[2017-08-14 04:52] VITALS: BP 115/64; PULSE 84; RESP 18; TEMP 96.7; O2SAT 96
[2017-08-14 07:39] LABS: BASOPHIL # 0.1 TH/MM3 (0-0.2); BASOPHIL % 0.6 % (0.0-2.0); EOSINOPHIL # 0.2 TH/MM3 (0-0.4); EOSINOPHIL % 1.7 % (0.0-4.0); HEMATOCRIT 29.1 % (35.0-46.0); LYMPH % 10.5 % (9.0-44.0); LYMPHOCYTE # 1.3 TH/MM3 (1.0-4.8); MEAN CELL VOLUME 86.9 FL (80.0-100.0); MEAN CORPUSCULAR HEMOGLOBIN 29.9 PG (27.0-34.0); MEAN CORPUSCULAR HGB CONC 34.4 % (32.0-36.0); MEAN PLATELET VOLUME 7.9 FL (7.0-11.0); MONO % 8.7 % (0.0-8.0); MONOCYTE # 1.1 TH/MM3 (0-0.9); NEUT % 78.5 % (16.0-70.0); PLATELET COUNT 288 TH/MM3 (150-450); RED BLOOD COUNT 3.35 MIL/MM3 (4.00-5.30); RED CELL DISTRIBUTION WIDTH 13.2 % (11.6-17.2); WHITE BLOOD COUNT 12.8 TH/MM3 (4.0-11.0)
[2017-08-14 08:00] VITALS: BP 132/71; PULSE 87; RESP 18; TEMP 97; O2SAT 97
[2017-08-14 08:42] LABS: ALBUMIN 2.6 GM/DL (3.4-5.0); ALKALINE PHOSPHATASE 148 U/L (45-117); ALT (GPT) 59 U/L (10-53); AST (GOT) 47 U/L (15-37); BICARBONATE 28.7 MEQ/L (21.0-32.0); BLOOD UREA NITROGEN 22 MG/DL (7-18); CALCIUM 8.7 MG/DL (8.5-10.1); CHLORIDE 101 MEQ/L (98-107); CREATININE 0.88 MG/DL (0.50-1.00); GLOMERULAR FILTRATION RATE 64 ML/MIN (>89); GLUCOSE,RANDOM 91 MG/DL (74-106); SODIUM (NA) 138 MEQ/L (136-145); TOTAL BILIRUBIN ADULT 0.8 MG/DL (0.2-1.0); TOTAL PROTEIN 6.5 GM/DL (6.4-8.2)
--- NOTE | 2017-08-14 08:42 | HHI.PR ---
Subjective Remarks in no acute distress. still with some abdominal pain. no nausea or vomiting. afebrile. Objective Vitals Vital Signs Date Time Temp Pulse Resp B/P (MAP) Pulse Ox O2 Delivery O2 Flow Rate FiO2 08/14/17 04:52 96.7 84 18 115/64 (81) 96 08/13/17 23:13 96.7 83 18 98/55 (69) 99 08/13/17 22:33 18 08/13/17 22:33 18 08/13/17 21:48 97.9 77 18 93/57 (69) 98 08/13/17 19:40 87 16 99/56 (70) 97 Room Air 08/13/17 17:06 98.3 108 18 103/60 (74) 97 Room Air 08/13/17 17:05 106 16 99 Room Air 08/13/17 14:18 99.2 86 16 106/62 (77) 96 I/O 08/13/17 08/13/17 08/13/17 08/14/17 08/14/17 08/14/17 07:00 15:00 23:00 07:00 15:00 23:00 Intake Total 1480 ml 1472.51 ml Balance 1480 ml 1472.51 ml Intake Oral 480 ml 360 ml IV Total 1000 ml 1112.51 ml # Voids 1 2 # Bowel Movements 0 0 Result Diagram: 08/14/17 0718 08/13/17 1443 Imaging Last Impressions Chest X-Ray 08/13/[id number] Signed Impressions: Service Date/Time: Sunday, August 13, 2017 17:14 - CONCLUSION: No acute disease. Fabio Alford Jr., MD Abdomen/Pelvis CT [id number]/13/[id number] Signed Impressions: Service Date/Time: Sunday, August 13, 2017 18:40 - CONCLUSION: 1. Abnormal mural thickening of the distal left colon, sigmoid colon and rectum with extensive constance-colonic and constance-rectal fat stranding and complex free fluid in the deep pelvis. Primary differential diagnosis is a distal colitis and proctitis. There is a reported history of ovarian cancer and cannot exclude tumor infiltration. This would be better evaluated colonoscopically. There is severe constipation and proximal colon which is dilated up to 8.5 cm in diameter. Miguel Ortega MD Objective Remarks GENERAL: This is a well-nourished, well-developed patient, in no apparent distress. CARDIOVASCULAR: Regular rate and regular rhythm without murmurs, gallops, or rubs. RESPIRATORY: Clear to auscultation. Breath sounds equal bilaterally. No wheezes , rales, or rhonchi. GASTROINTESTINAL: Abdomen soft, mild generalized tenderness, nondistended. Normal, active bowel sounds MUSCULOSKELETAL: Extremities without clubbing, cyanosis, or edema. NEURO: Alert & Oriented x4 to person, place, time, situation. Moves all ext x4 Medications and IVs Inpatient Medications Acetaminophen (Tylenol) 650 mg Q6H PRN PO FEVER/PAIN SCALE 1 TO 2; Start at 20:45 Acetaminophen/ Hydrocodone Bitart ([place] 5-325 Mg) 1 tab Q4H PRN PO PAIN SCALE 3 TO 5 Last administered on 08/13/17at 21:58; Start 08/13/17 at 20:45 Al Hydrox/Mg Hydrox/Simethicone (Mag-Al Plus Susp Liq) 30 ml Q6H PRN PO GI DISTRESS; Start 08/13/17 at 22:15 Amlodipine Besylate (Norvasc) 10 mg DAILY PO ; Start 08/14/17 at 09:00 Aripiprazole (Abilify) 2 mg DAILY PO ; Start 08/14/17 at 09:00 Atropine/Hyoscyam/ Phenobarb/Scopol ( Liq) 10 ml Q6H PRN PO GI DISTRESS ; Start 08/13/17 at 22:15 Bisacodyl (Dulcolax Supp) 10 mg DAILY PRN RECTAL SEVERE CONSITIPATION; Start at 20:45 Ceftriaxone Sodium 1000 mg/ Sodium Chloride 100 ml @ 200 mls/hr ONCE ONCE IV Last administered on 08/13/17at 20:10; Start 08/13/17 at 19:15; Stop 08/13/17 at 19:44; Status DC Cyclobenzaprine HCl (Flexeril) 10 mg TID PO ; Start 08/14/17 at 09:00 Duloxetine HCl (Cymbalta Dr) 60 mg DAILY PO ; Start 08/14/17 at 09:00 Famotidine (Pepcid Inj) 10 mg Q12H IV PUSH Last administered on 08/14/17at 00:25 ; Start 08/13/17 at 23:00 Lactulose (Lactulose Liq) 30 ml DAILY PRN PO SEVERE CONSITIPATION; Start at 20:45 Lidocaine HCl (Xylocaine 2% Viscous) 15 ml Q6H PRN SWISH-SWAL GI DISTRESS; Start 08/13/17 at 22:15 Magnesium Hydroxide (Milk Of Magnesia Liq) 30 ml Q12H PRN PO Mild constipation ; Start 08/13/17 at 20:45 Morphine Sulfate (Morphine Inj) 2 mg Q3H PRN IV PUSH Pain 6-10; Start 08/13/17 at 20:45 Ondansetron HCl (Zofran Inj) 4 mg Q6H PRN IVP NAUSEA OR VOMITING; Start at 20:45 Piperacillin Sod/ Tazobactam Sod 100 ml @ 200 mls/hr Q6H IV Last administered on 08/14/17at 05:50; Start 08/14/17 at 00:00 Pneumococcal Polyvalent Vaccine (Pneumovax-23 Inj) 25 mcg ONCE ONCE IM ; Start 08/14/17 at 10:00; Stop 08/14/17 at 10:01 Potassium Chloride (KCl) 40 meq ONCE ONCE PO Last administered on 08/13/17at 21 :54; Start 08/13/17 at 21:00; Stop 08/13/17 at 21:01; Status DC Pravastatin Sodium (Pravachol) 40 mg DAILY PO ; Start 08/14/17 at 09:00 Pregabalin (Lyrica) 150 mg BID PO Last administered on 08/13/17at 21:55; Start 08/13/17 at 21:00 Senna/Docusate Sodium (Constance-Colace) 1 tab BID PO ; Start 08/13/17 at 21:00 Sennosides (Senokot) 17.2 mg Q12H PRN PO Moderate constipation; Start 08/13/17 at 20:45 Sodium Chloride (NS Flush) 2 ml BID IV FLUSH ; Start 08/13/17 at 21:00 Vancomycin HCl 1251 mg/Sodium Chloride 512.51 ml @ 250 mls/ hr ONCE ONCE IV Last administered on 08/13/17at 22:36; Start 08/13/17 at 20:45; Stop 08/13/17 at 22:47; Status DC A/P Problem List: (1) Sepsis ICD Code: A41.9 - Sepsis, unspecified organism (2) Colitis ICD Code: K52.9 - Noninfective gastroenteritis and colitis, unspecified Status: Acute (3) Intractable pain ICD Code: R52 - Pain, unspecified (4) Renal insufficiency ICD Code: N28.9 - Disorder of kidney and ureter, unspecified (5) Hypokalemia ICD Code: E87.6 - Hypokalemia Status: Acute Assessment and Plan A/P 1. Sepsis: Temp 99, HR 106, WBC 19, Source-Colitis. Continue IV Abx, IVF for hydration. 2. Colitis: CT Abd/Pelvis w/ diffuse wall thickening consistent w/ colitis/ proctitis, however possible tumor extension from h/o ovarian ca . continue IV Zosyn, IVF, Consulted GI for further evaluation likely colonoscopy. 3. Intractable Pain: secondary to above, analgesics/antiemetics as needed- improved. 4. Hypokalemia: K+ 2.8, s/p replacement, level today pending. 5. Renal Insufficiency: Creatinine 1.21, previously 1.03 on 07/27/16. UA with moderate LE, bacteriuria and hematuria, will continue with empiric treatment of UTI. 6.elevated LFT's; will monitor the levels- GI consulted as noted above. 7. DVT Prophylaxis: SCD/teds. Discharge Planning awaiting GI evaluation. Cruz Sarabia MD Aug 14, 2017 08:42
[2017-08-14] MEDS: SODIUM CHLORIDE 0.9% FLUSH 10 ML FLUSH IV FLUSH SCH ×2 (09:00→20:55)
[2017-08-14] MEDS ORDERED: NON-FORMULARY DRUG (Simvastatin 20 MG) PO SCH (09:00)
[2017-08-14] MEDS: DOCUSATE SODIUM 50 MG/SENNA 8.6 MG TAB PO SCH ×2 (09:00→20:55)
[2017-08-14] MEDS: PREGABALIN 75 MG CAP PO SCH ×2 (09:02→20:55)
[2017-08-14] MEDS: ARIPiprazole 2 MG TAB PO SCH (09:02)
[2017-08-14] MEDS: DULoxetine HCl DR 60 MG CAP PO SCH (09:02)
[2017-08-14] MEDS: CYCLOBENZAPRINE HCL 10 MG TAB PO SCH ×3 (09:03→17:40)
[2017-08-14] MEDS: PRAVASTATIN SOD 40 MG TAB PO SCH (09:03)
[2017-08-14] MEDS: ACETAMINOPHEN/HYDROcodone 325 MG/5 MG TAB PO PRN ×2 (09:12→16:45)
[2017-08-14] MEDS ORDERED: PNEUMOCOCCAL POLYVALENT INJ 25 MCG/0.5 ML SYR IM ONE (10:00)
--- NOTE | 2017-08-14 10:47 | PD.CONS ---
HPI History of Present Illness This is a 66 year old a PMH of HTN and Ovarian CA s/p Hysterectomy/Chemo ( ), chronic use of hydrocodone and Arthritis who presented to the ER w/ complaints of abdominal pain, and constipation. States she hasn't had BM for almost 2 weeks. Took Mg Citrate at home 2 days ago with minimal relief. Now she is having liquid stools. She has chronic constipation especially with chronic use of hydrocodone and has been on a regimen of Trulance daily. The pain is in lower abd constant. Denies nausea, vomiting, hematemesis, GERD, hematochezia or melena. Pt resides in [place] and was scheduled to have colonoscopy in October. Last colonoscopy was 3 yrs ago with benign polyps. CT Abd/ Pelvis w/ diffuse wall thickening consistent w/ colitis/proctitis, however possible tumor extension from h/o ovarian ca can't be excluded. No previous hx of colitis. She has lost about 17 lbs in the past few months but intentional with diet. (Tamia Reynolds) PFSH Past Medical History PMH: HTN and Ovarian CA s/p Hysterectomy/Chemo () and Arthritis Past Surgical History PAST SURGICAL HISTORY: Appendectomy, Hysterectomy, Back Fusion, Neck Fusion, Tonsillectomy (Tamia Reynolds) Coded Allergies: Sulfa (Sulfonamide Antibiotics) (Verified Allergy, Severe, rash, 08/13/17) prochlorperazine (Verified Allergy, Severe, rash, 08/13/17) Medications Current Medications Medications (Trade) Dose Ordered Sig/Whit Route Start Time Stop Time Status Last Admin Piperacillin Sod/ Tazobactam Sod 100 ml @ 200 mls/hr Q6H IV 08/14/17 00:00 08/14/17 05:50 Sodium Chloride 1,000 ml @ 100 mls/hr Q10H IV 08/13/17 21:00 08/13/17 21:51 (NS Flush) 2 ml UNSCH PRN IV FLUSH 08/13/17 20:45 (NS Flush) 2 ml BID IV FLUSH 08/13/17 21:00 (Zofran Inj) 4 mg Q6H PRN IVP 08/13/17 20:45 (Tylenol) 650 mg Q6H PRN PO 08/13/17 20:45 ([place] 5-325 Mg) 1 tab Q4H PRN PO 08/13/17 20:45 08/14/17 09:12 (Morphine Inj) 2 mg Q3H PRN IV PUSH 08/13/17 20:45 (Constance-Colace) 1 tab BID PO 08/13/17 21:00 (Milk Of Magnesia Liq) 30 ml Q12H PRN PO 08/13/17 20:45 (Senokot) 17.2 mg Q12H PRN PO 08/13/17 20:45 (Dulcolax Supp) 10 mg DAILY PRN RECTAL 08/13/17 20:45 (Lactulose Liq) 30 ml DAILY PRN PO 08/13/17 20:45 (Norvasc) 10 mg DAILY PO 08/14/17 09:00 08/14/17 09:08 (Abilify) 2 mg DAILY PO 08/14/17 09:00 08/14/17 09:02 (Flexeril) 10 mg TID PO 08/14/17 09:00 08/14/17 09:03 (Cymbalta Dr) 60 mg DAILY PO 08/14/17 09:00 08/14/17 09:02 (Lyrica) 150 mg BID PO 08/13/17 21:00 08/14/17 09:02 (Pravachol) 40 mg DAILY PO 08/14/17 09:00 08/14/17 09:03 (Pepcid Inj) 10 mg Q12H IV PUSH 08/13/17 23:00 08/14/17 00:25 (Mag-Al Plus Susp Liq) 30 ml Q6H PRN PO 08/13/17 22:15 ( Liq) 10 ml Q6H PRN PO 08/13/17 22:15 (Xylocaine 2% Viscous) 15 ml Q6H PRN SWISH-SWAL 08/13/17 22:15 Potassium Chloride 100 ml @ 50 mls/hr BOLUS ONCE IV 08/14/17 10:15 08/14/17 12:14 UNV (KCl) 40 meq ONCE ONCE PO 08/14/17 10:15 08/14/17 10:16 UNV (KCl) 40 meq ONCE ONCE PO 08/14/17 14:00 08/14/17 14:01 UNV Family History No family hx of colon cancer Social History drinks socially No smoking (Tamia Reynolds) Review of Systems Constitutional: COMPLAINS OF: Fatigue Endocrine: DENIES: Polyuria Eyes: DENIES: Double Vision Ears, nose, mouth, throat: DENIES: Hoarseness Respiratory: DENIES: Shortness of breath Cardiovascular: DENIES: Lower Extremity Edema Gastrointestinal: COMPLAINS OF: Abdominal pain, Constipation, Diarrhea, DENIES : Black stools, Bloody stools, Nausea, Vomiting, Difficulty Swallowing, Anorexia , Odynophagia, Swelling of Abdomen, Heartburn, Hematemesis Genitourinary: DENIES: Hematuria Musculoskeletal: DENIES: Back pain Integumentary: DENIES: Jaundice Immunologic/allergic: DENIES: Eczema Neurologic: DENIES: Abnormal gait Psychiatric: DENIES: Anxiety (Tamia Reynolds) GI Exam Vitals I&O Vital Signs Date Time Temp Pulse Resp B/P (MAP) Pulse Ox O2 Delivery O2 Flow Rate FiO2 08/14/17 08:00 97.0 87 18 132/71 (91) 97 08/14/17 04:52 96.7 84 18 115/64 (81) 96 08/13/17 23:13 96.7 83 18 98/55 (69) 99 08/13/17 22:33 18 08/13/17 22:33 18 08/13/17 21:48 97.9 77 18 93/57 (69) 98 08/13/17 19:40 87 16 99/56 (70) 97 Room Air 08/13/17 17:06 98.3 108 18 103/60 (74) 97 Room Air 08/13/17 17:05 106 16 99 Room Air 08/13/17 14:18 99.2 86 16 106/62 (77) 96 I/O 08/13/17 08/13/17 08/13/17 08/14/17 08/14/17 08/14/17 07:00 15:00 23:00 07:00 15:00 23:00 Intake Total 1480 ml 1472.51 ml Balance 1480 ml 1472.51 ml Intake Oral 480 ml 360 ml IV Total 1000 ml 1112.51 ml # Voids 1 2 # Bowel Movements 0 0 Imaging Last Impressions Chest X-Ray 08/13/17 9537 Signed Impressions: Service Date/Time: Sunday, August 13, 2017 17:14 - CONCLUSION: No acute disease. Fabio Alford Jr., MD Abdomen/Pelvis CT 08/13/17 1655 Signed Impressions: Service Date/Time: Sunday, August 13, 2017 18:40 - CONCLUSION: 1. Abnormal mural thickening of the distal left colon, sigmoid colon and rectum with extensive constance-colonic and consatnce-rectal fat stranding and complex free fluid in the deep pelvis. Primary differential diagnosis is a distal colitis and proctitis. There is a reported history of ovarian cancer and cannot exclude tumor infiltration. This would be better evaluated colonoscopically. There is severe constipation and proximal colon which is dilated up to 8.5 cm in diameter. Miguel Ortega MD Laboratory Test 08/13/17 14:43 08/13/17 15:00 08/14/17 07:18 White Blood Count 19.0 TH/MM3 12.8 TH/MM3 Red Blood Count 3.64 MIL/MM3 3.35 MIL/MM3 Hemoglobin 10.7 GM/DL 10.0 GM/DL Hematocrit 31.6 % 29.1 % Mean Corpuscular Volume 86.7 FL 86.9 FL Mean Corpuscular Hemoglobin 29.3 PG 29.9 PG Mean Corpuscular Hemoglobin Concent 33.8 % 34.4 % Red Cell Distribution Width 13.2 % 13.2 % Platelet Count 401 TH/MM3 288 TH/MM3 Mean Platelet Volume 8.5 FL 7.9 FL Neutrophils (%) (Auto) 84.3 % 78.5 % Lymphocytes (%) (Auto) 8.1 % 10.5 % Monocytes (%) (Auto) 6.7 % 8.7 % Eosinophils (%) (Auto) 0.5 % 1.7 % Basophils (%) (Auto) 0.4 % 0.6 % Neutrophils # (Auto) 16.1 TH/MM3 10.0 TH/MM3 Lymphocytes # (Auto) 1.5 TH/MM3 1.3 TH/MM3 Monocytes # (Auto) 1.3 TH/MM3 1.1 TH/MM3 Eosinophils # (Auto) 0.1 TH/MM3 0.2 TH/MM3 Basophils # (Auto) 0.1 TH/MM3 0.1 TH/MM3 CBC Comment DIFF FINAL DIFF FINAL Differential Comment Blood Urea Nitrogen 32 MG/DL 22 MG/DL Creatinine 1.21 MG/DL 0.88 MG/DL Random Glucose 95 MG/DL 91 MG/DL Total Protein 7.2 GM/DL 6.5 GM/DL Albumin 2.9 GM/DL 2.6 GM/DL Calcium Level 8.9 MG/DL 8.7 MG/DL Alkaline Phosphatase 180 U/L 148 U/L Aspartate Amino Transf (AST/SGOT) 76 U/L 47 U/L Alanine Aminotransferase (ALT/SGPT) 86 U/L 59 U/L Total Bilirubin 0.8 MG/DL 0.8 MG/DL Sodium Level 135 MEQ/L 138 MEQ/L Potassium Level 2.8 MEQ/L 2.7 MEQ/L Chloride Level 96 MEQ/L 101 MEQ/L Carbon Dioxide Level 31.7 MEQ/L 28.7 MEQ/L Anion Gap 7 MEQ/L 8 MEQ/L Estimat Glomerular Filtration Rate 45 ML/MIN 64 ML/MIN Lipase 51 U/L Urine Color YELLOW Urine Turbidity CLEAR Urine pH 5.5 Urine Specific [place] 1.019 Urine Protein TRACE mg/dL Urine Glucose (UA) NEG mg/dL Urine Ketones NEG mg/dL Urine Occult Blood SMALL Urine Nitrite NEG Urine Bilirubin NEG Urine Urobilinogen 4.0 MG/DL Urine Leukocyte Esterase MOD Urine RBC 17 /hpf Urine WBC 4 /hpf Urine Squamous Epithelial Cells 2 /hpf Urine Hyaline Casts 12 /lpf Microscopic Urinalysis Comment CULT NOT INDICATED Physical Examination HEENT: normocephalic; atraumatic; no jaundice. NECK: Neck is supple, no JVD, no lymphadenopathy. CHEST: Chest is clear to auscultation and percussion. CARDIAC: Regular rate and rhythm with no murmur gallop or rubs. ABDOMEN: Soft, nondistended, lower abd tenderness; no hepatosplenomegaly; bowel sounds are present in all four quadrants. EXTREMITIES: No clubbing, cyanosis, or edema. SKIN: Normal; no rash; no jaundice. CHIMNEY REPAIRER: No focal deficits; alert and oriented times three. (Tamia Reynolds) Assessment and Plan Plan - Abd/constipation for the past 2 weeks- CT Abd/Pelvis w/ diffuse wall thickening consistent w/ colitis/proctitis, however possible tumor extension from h/o ovarian ca can't be excluded. States she hasn't had BM for almost 2 weeks. Took Mg Citrate at home 2 days ago with minimal relief. Now she is having liquid stools. She has chronic constipation especially with chronic use of hydrocodone and has been on a regimen of Trulance daily. The pain is in lower abd constant. Denies nausea, vomiting, hematemesis, GERD, hematochezia or melena. Pt resides in [place] and was scheduled to have colonoscopy in October. Last colonoscopy was 3 yrs ago with benign polyps. No previous hx of colitis. She has lost about 17 lbs in the past few months but intentional with diet. - Leukocytosis- secondary to above on abx - Anemia- no bleeding reported - AKF- possible secondary to above - Elevated LFTs- no previous hx of liver dz, possibly due to long used of Hydrocodone, she is not daily or heavy drinker, will order hepatitis panel and monitor - Ovarian CA s/p Hysterectomy/Chemo (), Plan: - Clears - golytely today - Colonoscopy in the am - Obtain consents - NPO by mn - hepatitis panel - cont. bowel regimen - Cont. abx - Patient seen and examined by Dr. Calvo and myself and this note is written on his behalf. (Tamia Reynolds) Physician Comments As above assessment and plan. Colonoscopy in AM. Thank you for the consult. (Shana Calvo MD) Tamia Reynolds Aug 14, 2017 10:47 Shana Calvo MD Aug 14, 2017 23:10
[2017-08-14] MEDS ORDERED: POTASSIUM CHLORIDE 20 MEQ CONTROLLED RELEASE TAB PO ONE ×2 (11:15→15:00)
[2017-08-14] MEDS ORDERED: POTASSIUM CHLOR 20 MEQ PREMIX 100 ML IV ONE (11:15)
[2017-08-14] MEDS: SODIUM CHLOR 0.9% 1000 ML INJ 1,000 ML IV SCH ×2 (11:34→16:36)
[2017-08-14 12:00] VITALS: BP 100/59; PULSE 85; RESP 18; TEMP 97; O2SAT 95
[2017-08-14 16:00] VITALS: BP 114/62; PULSE 90; RESP 18; TEMP 97; O2SAT 99
[2017-08-14] MEDS ORDERED: PEG (High)/E-LYTE SOLN 4000 ML BTL PO ONE (16:00)
[2017-08-14 20:04] VITALS: PULSE 80
[2017-08-14 20:05] VITALS: BP 105/54; PULSE 78; RESP 17; TEMP 98.6; O2SAT 96
[2017-08-14] MEDS: SODIUM CHLORIDE 0.9% FLUSH 10 ML FLUSH IV FLUSH PRN ×2 (22:33→23:46)
[2017-08-15] VITALS (9 sets, daily range): BP systolic 114–146; BP diastolic 59–79; PULSE 73–80; RESP 16–18; TEMP 96.2–97.7; O2SAT 94–96
[2017-08-15] MEDS ORDERED: POVIDONE IODINE 5% (ANTISEPSIS KIT) 4 APPLICATIONS EACH NARE PRN (03:00)
[2017-08-15] MEDS ORDERED: CHLORHEXIDINE GLUCONATE 2 % 1 PACK (2 CLOTHS) TOPICAL PRN (03:00)
[2017-08-15] MEDS ORDERED: LACTATED RINGER'S 1000 ML IV PRN (03:00)
[2017-08-15] MEDS: SODIUM CHLOR 0.9% 1000 ML INJ 1,000 ML IV SCH ×3 (03:00→23:00)
[2017-08-15] MEDS ORDERED: SODIUM CHLORID 0.9% 500 ML IV PRN (03:00)
[2017-08-15] MEDS: PIPERACIL-TAZO 4.5 GM PREMIX 100 ML IV SCH ×4 (05:55→17:03)
[2017-08-15] MEDS: ACETAMINOPHEN/HYDROcodone 325 MG/5 MG TAB PO PRN ×4 (05:59→22:36)
[2017-08-15 07:31] LABS: ALBUMIN 2.3 GM/DL (3.4-5.0); ALKALINE PHOSPHATASE 132 U/L (45-117); ALT (GPT) 52 U/L (10-53); AST (GOT) 42 U/L (15-37); BICARBONATE 27.2 MEQ/L (21.0-32.0); BLOOD UREA NITROGEN 7 MG/DL (7-18); CALCIUM 8.1 MG/DL (8.5-10.1); CHLORIDE 104 MEQ/L (98-107); CREATININE 0.63 MG/DL (0.50-1.00); GLOMERULAR FILTRATION RATE 95 ML/MIN (>89); GLUCOSE,RANDOM 88 MG/DL (74-106); SODIUM (NA) 142 MEQ/L (136-145); TOTAL BILIRUBIN ADULT 0.7 MG/DL (0.2-1.0)
[2017-08-15] MEDS: CYCLOBENZAPRINE HCL 10 MG TAB PO SCH ×3 (09:00→17:02)
[2017-08-15] MEDS: PRAVASTATIN SOD 40 MG TAB PO SCH (09:00)
[2017-08-15] MEDS: PREGABALIN 75 MG CAP PO SCH ×2 (09:00→21:41)
[2017-08-15] MEDS: ARIPiprazole 2 MG TAB PO SCH (09:00)
[2017-08-15] MEDS: DULoxetine HCl DR 60 MG CAP PO SCH (09:00)
[2017-08-15] MEDS: SODIUM CHLORIDE 0.9% FLUSH 10 ML FLUSH IV FLUSH SCH ×2 (09:00→21:41)
[2017-08-15] MEDS: POTASSIUM CHLOR 20 MEQ PREMIX 100 ML IV SCH ×2 (09:00→11:00)
[2017-08-15] MEDS: DOCUSATE SODIUM 50 MG/SENNA 8.6 MG TAB PO SCH ×2 (09:00→21:41)
--- NOTE | 2017-08-15 09:30 | HHI.PR ---
Subjective Remarks in no acute distress. abdominal pain has subsided. no nausea or vomiting. had a few loose BM's over night. Objective Vitals Vital Signs Date Time Temp Pulse Resp B/P (MAP) Pulse Ox O2 Delivery O2 Flow Rate FiO2 08/15/17 08:00 96.2 73 18 121/66 (84) 94 08/15/17 04:10 97.7 80 16 122/64 (83) 94 08/15/17 01:00 97.7 75 17 114/59 (77) 96 08/15/17 00:40 79 08/14/17 20:05 98.6 78 17 105/54 (71) 96 08/14/17 20:04 80 08/14/17 16:00 97.0 90 18 114/62 (79) 99 08/14/17 12:00 97.0 85 18 100/59 (73) 95 I/O 08/14/17 08/14/17 08/14/17 08/15/17 08/15/17 08/15/17 07:00 15:00 23:00 07:00 15:00 23:00 Intake Total 1472.51 ml 100 ml 100 ml 4260 ml Balance 1472.51 ml 100 ml 100 ml 4260 ml Intake Oral 360 ml 1020 ml IV Total 1112.51 ml 100 ml 100 ml 3240 ml # Voids 2 4 8 # Bowel Movements 0 7 Result Diagram: 08/14/1718 08/15/17 0615 Imaging Last Impressions Chest X-Ray 08/13/171654 Signed Impressions: Service Date/Time: Sunday, August 13, 2017 17:14 - CONCLUSION: No acute disease. Fabio Alford Jr., MD Abdomen/Pelvis CT 08/13/171654 Signed Impressions: Service Date/Time: Sunday, August 13, 2017 18:40 - CONCLUSION: 1. Abnormal mural thickening of the distal left colon, sigmoid colon and rectum with extensive constance-colonic and constance-rectal fat stranding and complex free fluid in the deep pelvis. Primary differential diagnosis is a distal colitis and proctitis. There is a reported history of ovarian cancer and cannot exclude tumor infiltration. This would be better evaluated colonoscopically. There is severe constipation and proximal colon which is dilated up to 8.5 cm in diameter. Miguel Ortega MD Objective Remarks GENERAL: This is a well-nourished, well-developed patient, in no apparent distress. CARDIOVASCULAR: Regular rate and regular rhythm without murmurs, gallops, or rubs. RESPIRATORY: Clear to auscultation. Breath sounds equal bilaterally. No wheezes , rales, or rhonchi. GASTROINTESTINAL: Abdomen soft, mild generalized tenderness, nondistended. Normal, active bowel sounds MUSCULOSKELETAL: Extremities without clubbing, cyanosis, or edema. NEURO: Alert & Oriented x4 to person, place, time, situation. Moves all ext x4 Medications and IVs Inpatient Medications Acetaminophen (Tylenol) 650 mg Q6H PRN PO FEVER/PAIN SCALE 1 TO 2; Start at 20:45 Acetaminophen/ Hydrocodone Bitart ([place] 5-325 Mg) 1 tab Q4H PRN PO PAIN SCALE 3 TO 5 Last administered on 08/15/17at 05:59; Start 08/13/17 at 20:45 Al Hydrox/Mg Hydrox/Simethicone (Mag-Al Plus Susp Liq) 30 ml Q6H PRN PO GI DISTRESS; Start 08/13/17 at 22:15 Amlodipine Besylate (Norvasc) 10 mg DAILY PO Last administered on 08/14/17at 09: 08; Start 08/14/17 at 09:00 Aripiprazole (Abilify) 2 mg DAILY PO Last administered on 08/14/17at 09:02; Start 08/14/17 at 09:00 Atropine/Hyoscyam/ Phenobarb/Scopol ( Liq) 10 ml Q6H PRN PO GI DISTRESS ; Start 08/13/17 at 22:15 Bisacodyl (Dulcolax Supp) 10 mg DAILY PRN RECTAL SEVERE CONSITIPATION; Start at 20:45 Ceftriaxone Sodium 1000 mg/ Sodium Chloride 100 ml @ 200 mls/hr ONCE ONCE IV Last administered on 08/13/17at 20:10; Start 08/13/17 at 19:15; Stop 08/13/17 at 19:44; Status DC Chlorhexidine Gluconate (Chlorhexidine 2% Cloth) 3 pack PROCUREMENT AGENT PRN TOPICAL SEE LABEL COMMENTS; Start 08/15/17 at 03:00; Stop 08/18/17 at 02:59 Cyclobenzaprine HCl (Flexeril) 10 mg TID PO Last administered on 08/14/17at 17: 40; Start 08/14/17 at 09:00 Duloxetine HCl (Cymbalta Dr) 60 mg DAILY PO Last administered on 08/14/17at 09: 02; Start 08/14/17 at 09:00 Famotidine (Pepcid Inj) 20 mg Q12H IV PUSH Last administered on 08/14/17at 22:33 ; Start 08/14/17 at 23:00 Lactated Ringer's 1,000 ml @ 30 mls/hr Q24H PRN IV SEE LABEL COMMENTS; Start at 03:00; Stop 08/18/17 at 02:59 Lactulose (Lactulose Liq) 30 ml DAILY PRN PO SEVERE CONSITIPATION; Start at 20:45 Lidocaine HCl (Xylocaine 2% Viscous) 15 ml Q6H PRN SWISH-SWAL GI DISTRESS; Start 08/13/17 at 22:15 Magnesium Hydroxide (Milk Of Magnesia Liq) 30 ml Q12H PRN PO Mild constipation ; Start 08/13/17 at 20:45 Morphine Sulfate (Morphine Inj) 2 mg Q3H PRN IV PUSH Pain 6-10; Start 08/13/17 at 20:45 Ondansetron HCl (Zofran Inj) 4 mg Q6H PRN IVP NAUSEA OR VOMITING; Start at 20:45 Piperacillin Sod/ Tazobactam Sod 100 ml @ 200 mls/hr Q6H IV Last administered on 08/15/17at 05:55; Start 08/14/17 at 00:00 Pneumococcal Polyvalent Vaccine (Pneumovax-23 Inj) 25 mcg ONCE ONCE IM Last administered on 08/14/17at 09:13; Start 08/14/17 at 10:00; Stop 08/14/17 at 10:01 ; Status DC Polyethylene Glycol/ Electrolytes (Colyte Liq) 4,000 ml ONCE ONCE PO Last administered on 08/14/17at 16:36; Start 08/14/17 at 16:00; Stop 08/14/17 at 16:01 ; Status DC Potassium Chloride 100 ml @ 50 mls/hr Q2H IV ; Start 08/15/17 at 09:00; Stop at 12:59 Potassium Chloride (KCl) 40 meq ONCE ONCE PO Last administered on 08/14/17at 15 :27; Start 08/14/17 at 15:00; Stop 08/14/17 at 15:01; Status DC Povidone Iodine (Betadine 5% Antisepsis Kit) 1 applic PROCUREMENT AGENT PRN EACH NARE SEE LABEL COMMENTS; Start 08/15/17 at 03:00; Stop 08/18/17 at 02:59 Pravastatin Sodium (Pravachol) 40 mg DAILY PO Last administered on 08/14/17at 09 :03; Start 08/14/17 at 09:00 Pregabalin (Lyrica) 150 mg BID PO Last administered on 08/14/17at 20:55; Start 08/13/17 at 21:00 Senna/Docusate Sodium (Constance-Colace) 1 tab BID PO ; Start 08/13/17 at 21:00 Sennosides (Senokot) 17.2 mg Q12H PRN PO Moderate constipation; Start 08/13/17 at 20:45 Sodium Chloride 500 ml @ 30 mls/hr [id number] PRN IV SEE LABEL COMMENTS; Start 05/23 at 03:00; Stop 08/18/17 at 02:59 Sodium Chloride (NS Flush) 2 ml BID IV FLUSH Last administered on 08/14/17at 20: 55; Start 08/13/17 at 21:00 Vancomycin HCl 1251 mg/Sodium Chloride 512.51 ml @ 250 mls/ hr ONCE ONCE IV Last administered on 08/13/17at 22:36; Start 08/13/17 at 20:45; Stop 08/13/17 at 22:47; Status DC A/P Problem List: (1) Sepsis ICD Code: A41.9 - Sepsis, unspecified organism (2) Colitis ICD Code: K52.9 - Noninfective gastroenteritis and colitis, unspecified Status: Acute (3) Intractable pain ICD Code: R52 - Pain, unspecified (4) Renal insufficiency ICD Code: N28.9 - Disorder of kidney and ureter, unspecified (5) Hypokalemia ICD Code: E87.6 - Hypokalemia Status: Acute Assessment and Plan A/P 1. Sepsis: Temp 99, HR 106, WBC 19, Source-Colitis. Continue IV Abx, IVF for hydration. 2. Colitis: CT Abd/Pelvis w/ diffuse wall thickening consistent w/ colitis/ proctitis, however possible tumor extension from h/o ovarian ca . continue IV Zosyn, IVF, Consulted GI ; plan for colonoscopy today. 3. Intractable Pain: secondary to above, analgesics/antiemetics as needed- improved. 4. Hypokalemia: will replace and monitor. 5. Renal Insufficiency: Creatinine 1.21, previously 1.03 on 07/27/16. UA with moderate LE, bacteriuria and hematuria, will continue with empiric treatment of UTI. 6.elevated LFT's; will monitor the levels- GI consulted as noted above.hepatitis panel pending. 7. DVT Prophylaxis: SCD/teds. Discharge Planning dc home tomorrow- pending colonoscopy and when potassium level improves. Cruz Sarabia MD Aug 15, 2017 09:30
[2017-08-15] MEDS: FAMOTIDINE 20 MG/2 ML VIAL IV PUSH SCH ×2 (11:00→23:00)
[2017-08-15] MEDS ORDERED: PROPOFOL 200 MG/20 ML AMP IV ONE (12:00)
[2017-08-15] MEDS ORDERED: LIDOCAINE HCL 1% PF 5 ML SYRINGE OTHER ONE (12:00)
--- NOTE | 2017-08-15 12:15 | GIPROC ---
[facility] [address] [facility]. [facility], [address] COLONOSCOPY PROCEDURE REPORT EXAM DATE: 08/15/2017 PATIENT NAME: Gayle Moeller MR #: [id number] BIRTHDATE: 1950 ENDOSCOPIST: Shana Calvo MD ORDER #: [id number] MACHINE CEMENTER: Matias Bay and Randee Morin STATUS: inpatient INDICATIONS: The patient is a 66 yr old female here for a colonoscopy due to constipation PROCEDURE PERFORMED: Colonoscopy with biopsy MEDICATIONS: None and Per Anesthesia. PREP QUALITY: poor PREP TYPE:GoLytely ESTIMATED BLOOD LOSS: None CONSENT: The patient understands the risks and benefits of the procedure and understands that these risks include, but are not limited to: sedation, allergic reaction, infection, perforation and/or bleeding. Alternative means of evaluation and treatment include, among others: physical exam, x-rays, and/or surgical intervention. The patient elects to proceed with this endoscopic procedure. medical equipment was checked for proper function. Hand hygiene and appropriate measures for infection prevention was taken. After the risks, benefits and alternatives of the procedure were thoroughly explained, Informed consent was verified, confirmed and timeout was successfully executed by the treatment team. A digital exam revealed no abnormalities of the rectum The Pentax [id number] endoscope was introduced through the anus and advanced to the cecum, which was identified by both the appendix and ileocecal valve. The instrument was then slowly withdrawn as the colon was fully examined. COLON FINDINGS: Multiple large non-bleeding non-bleeding, deep, irregular shaped and clean-based ulcers were found in the sigmoid colon. Biopsies were taken at edge of the ulcers and at the center of the ulcers. Retroflexion was not performed due to a narrow rectal vault The scope was then completely withdrawn from the patient and the procedure terminated. PROCEDURE WITHDRAWAL TIME:8minutes ADVERSE EVENTS: There were no complications. IMPRESSIONS: Multiple large non-bleeding ulcers were found in the distal sigmoid colon; biopsies were taken RECOMMENDATIONS: Await biopsy results. Biopsy results will not be ready for 7-10 days. If you don't hear from us in two weeks, call our office for results. RECALL: Colonoscopy, pending biopsy results Shana Calvo MD eSigned: Shana Calvo MD 08/15/2017 12:15 PM cc: PATIENT NAME: Gayle Moeller MR#: [id number]
[2017-08-15 13:30] LABS: HEPATITIS A AB IGM NEGATIVE (NEGATIVE); HEPATITIS B CORE AB IGM NEGATIVE (NEGATIVE)
[2017-08-15] MEDS ORDERED: POTASSIUM CHLORIDE 10 MEQ CONTROLLED RELEASE TAB PO ONE ×2 (14:00→18:00)
--- NOTE | 2017-08-15 18:40 | EKG ---
Date Performed: 08/14/2017 Time Performed: 15:06:53 PTAGE: 66 years EKG: Sinus rhythm LOW QRS VOLTAGE IN PRECORDIAL LEADS POSSIBLE ANTERIOR MYOCARDIAL INFARCTION , PROBABLY OLD BORDERLIN E ECG PREVIOUS TRACING : 07/27/2016 19.56 Since the prior tracing, there has been no significant muñoz DOCTOR: Kelli Hardin Interpretating Date/Time 08/15/2017 18:39:01
[2017-08-15] MEDS ORDERED: POTASSIUM CHLORIDE 20 MEQ CONTROLLED RELEASE TAB PO ONE (23:45)
[2017-08-16] VITALS (8 sets, daily range): BP systolic 117–141; BP diastolic 67–83; PULSE 80–85; RESP 17–18; TEMP 96.8–98.3; O2SAT 93–100
[2017-08-16] MEDS: PIPERACIL-TAZO 4.5 GM PREMIX 100 ML IV SCH ×4 (00:25→18:05)
[2017-08-16] MEDS: ACETAMINOPHEN/HYDROcodone 325 MG/5 MG TAB PO PRN ×3 (04:53→17:46)
[2017-08-16] MEDS: SODIUM CHLOR 0.9% 1000 ML INJ 1,000 ML IV SCH ×2 (09:00→18:48)
[2017-08-16] MEDS: CYCLOBENZAPRINE HCL 10 MG TAB PO SCH ×3 (09:23→17:46)
[2017-08-16] MEDS: DULoxetine HCl DR 60 MG CAP PO SCH (09:23)
[2017-08-16] MEDS: PRAVASTATIN SOD 40 MG TAB PO SCH (09:23)
[2017-08-16] MEDS: DOCUSATE SODIUM 50 MG/SENNA 8.6 MG TAB PO SCH (09:23)
[2017-08-16] MEDS: PREGABALIN 75 MG CAP PO SCH (09:23)
[2017-08-16] MEDS: SODIUM CHLORIDE 0.9% FLUSH 10 ML FLUSH IV FLUSH SCH (09:24)
[2017-08-16] MEDS: ARIPiprazole 2 MG TAB PO SCH (09:27)
[2017-08-16] MEDS: FAMOTIDINE 20 MG/2 ML VIAL IV PUSH SCH (12:09)
--- NOTE | 2017-08-16 12:34 | HHI.PR ---
Subjective Remarks in no acute distress. doing much better today. abdominal pain is better. no nausea or vomiting. afebrile. d/w the RN. Objective Vitals Vital Signs Date Time Temp Pulse Resp B/P (MAP) Pulse Ox O2 Delivery O2 Flow Rate FiO2 08/16/17 12:00 98.3 81 18 136/78 (97) 96 08/16/17 08:00 97.2 85 18 141/82 (101) 98 08/16/17 04:35 98.1 80 18 141/82 (101) 97 08/16/17 00:27 97.7 82 17 121/69 (86) 93 08/16/17 00:19 83 08/15/17 21:26 21 08/15/17 20:38 97.1 76 18 143/79 (100) 96 08/15/17 20:23 79 08/15/17 16:00 96.3 80 18 130/76 (94) 96 08/15/17 12:40 97.4 75 18 146/76 (99) 96 I/O 08/15/17 08/15/17 08/15/17 08/16/17 08/16/17 08/16/17 07:00 15:00 23:00 07:00 15:00 23:00 Intake Total 4260 ml 1000 ml 460 ml 1568 ml Balance 4260 ml 1000 ml 460 ml 1568 ml Intake Oral 1020 ml 600 ml 360 ml 360 ml IV Total 3240 ml 100 ml 100 ml 1208 ml Other 300 ml # Voids 8 2 2 5 # Bowel Movements 7 1 0 0 Result Diagram: 08/14/1718 08/16/17 0529 Imaging Last Impressions Chest X-Ray 08/13/171654 Signed Impressions: Service Date/Time: Sunday, August 13, 2017 17:14 - CONCLUSION: No acute disease. Fabio Alford Jr., MD Abdomen/Pelvis CT 08/13/171654 Signed Impressions: Service Date/Time: Sunday, August 13, 2017 18:40 - CONCLUSION: 1. Abnormal mural thickening of the distal left colon, sigmoid colon and rectum with extensive constance-colonic and constance-rectal fat stranding and complex free fluid in the deep pelvis. Primary differential diagnosis is a distal colitis and proctitis. There is a reported history of ovarian cancer and cannot exclude tumor infiltration. This would be better evaluated colonoscopically. There is severe constipation and proximal colon which is dilated up to 8.5 cm in diameter. Miguel Ortega MD Objective Remarks GENERAL: This is a well-nourished, well-developed patient, in no apparent distress. CARDIOVASCULAR: Regular rate and regular rhythm without murmurs, gallops, or rubs. RESPIRATORY: Clear to auscultation. Breath sounds equal bilaterally. No wheezes , rales, or rhonchi. GASTROINTESTINAL: Abdomen soft, mild generalized tenderness, nondistended. Normal, active bowel sounds MUSCULOSKELETAL: Extremities without clubbing, cyanosis, or edema. NEURO: Alert & Oriented x4 to person, place, time, situation. Moves all ext x4 Medications and IVs Inpatient Medications Acetaminophen (Tylenol) 650 mg Q6H PRN PO FEVER/PAIN SCALE 1 TO 2; Start at 20:45 Acetaminophen/ Hydrocodone Bitart ([place] 5-325 Mg) 1 tab Q4H PRN PO PAIN SCALE 3 TO 5 Last administered on 08/16/17at 09:23; Start 08/13/17 at 20:45 Al Hydrox/Mg Hydrox/Simethicone (Mag-Al Plus Susp Liq) 30 ml Q6H PRN PO GI DISTRESS; Start 08/13/17 at 22:15 Amlodipine Besylate (Norvasc) 10 mg DAILY PO Last administered on 08/16/17at 09: 22; Start 08/14/17 at 09:00 Aripiprazole (Abilify) 2 mg DAILY PO Last administered on 08/16/17at 09:27; Start 08/14/17 at 09:00 Atropine/Hyoscyam/ Phenobarb/Scopol ( Liq) 10 ml Q6H PRN PO GI DISTRESS ; Start 08/13/17 at 22:15 Bisacodyl (Dulcolax Supp) 10 mg DAILY PRN RECTAL SEVERE CONSITIPATION; Start at 20:45 Ceftriaxone Sodium 1000 mg/ Sodium Chloride 100 ml @ 200 mls/hr ONCE ONCE IV Last administered on 08/13/17at 20:10; Start 08/13/17 at 19:15; Stop 08/13/17 at 19:44; Status DC Chlorhexidine Gluconate (Chlorhexidine 2% Cloth) 3 pack GROUND SERVICE EQUIPMENT MECHANIC PRN TOPICAL SEE LABEL COMMENTS; Start 08/15/17 at 03:00; Stop 08/18/17 at 02:59 Cyclobenzaprine HCl (Flexeril) 10 mg TID PO Last administered on 08/16/17at 12: 11; Start 08/14/17 at 09:00 Duloxetine HCl (Cymbalta Dr) 60 mg DAILY PO Last administered on 08/16/17at 09: 23; Start 08/14/17 at 09:00 Famotidine (Pepcid Inj) 20 mg Q12H IV PUSH Last administered on 08/16/17at 12:09 ; Start 08/14/17 at 23:00 Lactated Ringer's 1,000 ml @ 30 mls/hr Q24H PRN IV SEE LABEL COMMENTS; Start at 03:00; Stop 08/18/17 at 02:59 Lactulose (Lactulose Liq) 30 ml DAILY PRN PO SEVERE CONSITIPATION; Start at 20:45 Lidocaine HCl (Xylocaine 2% Viscous) 15 ml Q6H PRN SWISH-SWAL GI DISTRESS; Start 08/13/17 at 22:15 Magnesium Hydroxide (Milk Of Magnesia Liq) 30 ml Q12H PRN PO Mild constipation ; Start 08/13/17 at 20:45 Morphine Sulfate (Morphine Inj) 2 mg Q3H PRN IV PUSH Pain 6-10; Start 08/13/17 at 20:45 Ondansetron HCl (Zofran Inj) 4 mg Q6H PRN IVP NAUSEA OR VOMITING; Start at 20:45 Piperacillin Sod/ Tazobactam Sod 100 ml @ 200 mls/hr Q6H IV Last administered on 08/16/17at 12:09; Start 08/14/17 at 00:00 Pneumococcal Polyvalent Vaccine (Pneumovax-23 Inj) 25 mcg ONCE ONCE IM Last administered on 08/14/17at 09:13; Start 08/14/17 at 10:00; Stop 08/14/17 at 10:01 ; Status DC Polyethylene Glycol/ Electrolytes (Colyte Liq) 4,000 ml ONCE ONCE PO Last administered on 08/14/17at 16:36; Start 08/14/17 at 16:00; Stop 08/14/17 at 16:01 ; Status DC Potassium Chloride (KCl) 40 meq ONCE ONCE PO Last administered on 08/16/17at 00 :25; Start 08/15/17 at 23:45; Stop 08/15/17 at 23:46; Status DC Povidone Iodine (Betadine 5% Antisepsis Kit) 1 applic GROUND SERVICE EQUIPMENT MECHANIC PRN EACH NARE SEE LABEL COMMENTS; Start 08/15/17 at 03:00; Stop 08/18/17 at 02:59 Pravastatin Sodium (Pravachol) 40 mg DAILY PO Last administered on 08/16/17at 09 :23; Start 08/14/17 at 09:00 Pregabalin (Lyrica) 150 mg BID PO Last administered on 08/16/17at 09:23; Start 08/13/17 at 21:00 Senna/Docusate Sodium (Constance-Colace) 1 tab BID PO Last administered on at 09:23; Start 08/13/17 at 21:00 Sennosides (Senokot) 17.2 mg Q12H PRN PO Moderate constipation; Start 08/13/17 at 20:45 Sodium Chloride 500 ml @ 30 mls/hr [id number] PRN IV SEE LABEL COMMENTS; Start 05/23 at 03:00; Stop 08/18/17 at 02:59 Sodium Chloride (NS Flush) 2 ml BID IV FLUSH Last administered on 08/16/17at 09: 24; Start 08/13/17 at 21:00 Vancomycin HCl 1251 mg/Sodium Chloride 512.51 ml @ 250 mls/ hr ONCE ONCE IV Last administered on 08/13/17at 22:36; Start 08/13/17 at 20:45; Stop 08/13/17 at 22:47; Status DC A/P Problem List: (1) Sepsis ICD Code: A41.9 - Sepsis, unspecified organism (2) Colitis ICD Code: K52.9 - Noninfective gastroenteritis and colitis, unspecified Status: Acute (3) Intractable pain ICD Code: R52 - Pain, unspecified (4) Renal insufficiency ICD Code: N28.9 - Disorder of kidney and ureter, unspecified (5) Hypokalemia ICD Code: E87.6 - Hypokalemia Status: Acute Assessment and Plan A/P 1. Sepsis: Temp 99, HR 106, WBC 19, Source-Colitis. Continue IV Abx, IVF for hydration. 2. Colitis: CT Abd/Pelvis w/ diffuse wall thickening consistent w/ colitis/ proctitis, however possible tumor extension from h/o ovarian ca . continue IV Zosyn; will switch to po antibiotics. s/p colonoscopy with non-bleeding sigmoid ulcers. biopsy to be followed up as outpatient. 3. Hypokalemia: will replace and monitor. 4. Renal Insufficiency: Creatinine 1.21, previously 1.03 on 07/27/16. UA with moderate LE, bacteriuria and hematuria, will continue with empiric treatment of UTI. 5.elevated LFT's; hepatitis panel negative- improved. 6. DVT Prophylaxis: SCD/teds. Discharge Planning dc home today after potassium replacement and repeated potassium level today. see med list. f/u;pcp and GI. d/w the patient and RN. Cruz Sarabia MD Aug 16, 2017 12:34
[2017-08-16] MEDS ORDERED: ASPI-516 PO (12:36)
[2017-08-16] MEDS ORDERED: METR-1 PO (12:37)
[2017-08-16] MEDS ORDERED: CIPR-9 PO (12:37)
--- NOTE | 2017-08-16 12:38 | HHI.DS ---
Discharge Summary Admission Date Aug 13, 2017 at 20:53 Discharge Date: Aug 16, 2017 Admitting Diagnosis Colitis, hypokalemia (1) Sepsis ICD Code: A41.9 - Sepsis, unspecified organism Diagnosis: Principal (2) Colitis ICD Code: K52.9 - Noninfective gastroenteritis and colitis, unspecified Diagnosis: Principal Status: Acute (3) Intractable pain ICD Code: R52 - Pain, unspecified Diagnosis: Principal (4) Renal insufficiency ICD Code: N28.9 - Disorder of kidney and ureter, unspecified Diagnosis: Secondary (5) Hypokalemia ICD Code: E87.6 - Hypokalemia Diagnosis: Secondary Status: Acute Procedures colonoscopy Brief History - From Admission This is a 66-year-old female with a PMH of HTN and Ovarian CA s/p Hysterectomy/ Chemo () and Arthritis who presented to the ER w/ complaints of abdominal pain, distention and constipation. States symptoms have been ongoing for approx 2 days. Pain is intermittent, cramping, 8/10, non-radiating, no alleviating factors. Denies nausea, vomiting or diarrhea. Took Mg Citrate at home w/ minimal relief. Denies fever or chills. On arrival, BP 106/62, HR 106 , O2 sat 99% on RA, Temp 99.2. WBC 19. K+ 2.8. Creatinine 1.21, P recent 1.03 on 07/27/16. INR 1.0. UA negative. CXR with abnormal mural thickening of distal left colon, sigmoid colon and rectum, likely distal colitis and proctitis , cannot exclude tumor infiltration from ovarian CA, recommendation for colonoscopy. S/p Rocephin/Vanc in ER. CBC/BMP: 08/14/17 0718 08/16/17 0529 Significant Findings Laboratory Tests Test 08/13/17 14:43 08/13/17 15:00 08/14/17 07:18 08/14/17 12:02 White Blood Count 19.0 TH/MM3 (4.0-11.0) 12.8 TH/MM3 (4.0-11.0) Red Blood Count 3.64 MIL/MM3 (4.00-5.30) 3.35 MIL/MM3 (4.00-5.30) Hemoglobin 10.7 GM/DL (11.6-15.3) 10.0 GM/DL (11.6-15.3) Hematocrit 31.6 % (35.0-46.0) 29.1 % (35.0-46.0) Neutrophils (%) (Auto) 84.3 % (16.0-70.0) 78.5 % (16.0-70.0) Lymphocytes (%) (Auto) 8.1 % (9.0-44.0) Neutrophils # (Auto) 16.1 TH/MM3 (1.8-7.7) 10.0 TH/MM3 (1.8-7.7) Monocytes # (Auto) 1.3 TH/MM3 (0-0.9) 1.1 TH/MM3 (0-0.9) Blood Urea Nitrogen 32 MG/DL (7-18) 22 MG/DL (7-18) Creatinine 1.21 MG/DL (0.50-1.00) Albumin 2.9 GM/DL (3.4-5.0) 2.6 GM/DL (3.4-5.0) Alkaline Phosphatase 180 U/L (45-117) 148 U/L (45-117) Aspartate Amino Transf (AST/SGOT) 76 U/L (15-37) 47 U/L (15-37) Alanine Aminotransferase (ALT/SGPT) 86 U/L (10-53) 59 U/L (10-53) Sodium Level 135 MEQ/L (136-145) Potassium Level 2.8 MEQ/L (3.5-5.1) 2.7 MEQ/L (3.5-5.1) Chloride Level 96 MEQ/L (98-107) Estimat Glomerular Filtration Rate 45 ML/MIN (>89) 64 ML/MIN (>89) Lipase 51 U/L (73-393) Urine Occult Blood SMALL (NEG) Urine Urobilinogen 4.0 MG/DL (LESS THAN Urine Leukocyte Esterase MOD (NEG) Urine RBC 17 /hpf (0-3) Monocytes (%) (Auto) 8.7 % (0.0-8.0) Test 08/15/17 06:15 08/15/17 19:30 08/16/17 05:29 Total Protein 6.0 GM/DL (6.4-8.2) Albumin 2.3 GM/DL (3.4-5.0) Calcium Level 8.1 MG/DL (8.5-10.1) Alkaline Phosphatase 132 U/L (45-117) Aspartate Amino Transf (AST/SGOT) 42 U/L (15-37) Potassium Level 2.6 MEQ/L (3.5-5.1) 2.9 MEQ/L (3.5-5.1) 3.1 MEQ/L (3.5-5.1) Imaging Last Impressions Chest X-Ray 08/13/171654 Signed Impressions: Service Date/Time: Sunday, August 13, 2017 17:14 - CONCLUSION: No acute disease. Fabio Alford Jr., MD Abdomen/Pelvis CT 08/13/171654 Signed Impressions: Service Date/Time: Sunday, August 13, 2017 18:40 - CONCLUSION: 1. Abnormal mural thickening of the distal left colon, sigmoid colon and rectum with extensive heidy-colonic and heidy-rectal fat stranding and complex free fluid in the deep pelvis. Primary differential diagnosis is a distal colitis and proctitis. There is a reported history of ovarian cancer and cannot exclude tumor infiltration. This would be better evaluated colonoscopically. There is severe constipation and proximal colon which is dilated up to 8.5 cm in diameter. Miguel Ortega MD PE at Discharge GENERAL: This is a well-nourished, well-developed patient, in no apparent distress. CARDIOVASCULAR: Regular rate and regular rhythm without murmurs, gallops, or rubs. RESPIRATORY: Clear to auscultation. Breath sounds equal bilaterally. No wheezes , rales, or rhonchi. GASTROINTESTINAL: Abdomen soft, mild generalized tenderness, nondistended. Normal, active bowel sounds MUSCULOSKELETAL: Extremities without clubbing, cyanosis, or edema. NEURO: Alert & Oriented x4 to person, place, time, situation. Moves all ext x4 Hospital Course 1. Sepsis: Temp 99, HR 106, WBC 19, Source-Colitis. Continue IV Abx, IVF for hydration. 2. Colitis: CT Abd/Pelvis w/ diffuse wall thickening consistent w/ colitis/ proctitis, however possible tumor extension from h/o ovarian ca . continue IV Zosyn; will switch to po antibiotics. s/p colonoscopy with non-bleeding sigmoid ulcers. biopsy to be followed up as outpatient. 3. Hypokalemia: will replace and monitor. 4. Renal Insufficiency: Creatinine 1.21, previously 1.03 on 07/27/16. UA with moderate LE, bacteriuria and hematuria, will continue with empiric treatment of UTI. 5.elevated LFT's; hepatitis panel negative- improved.hold statin for now. 6. DVT Prophylaxis: SCD/teds. Pt Condition on Discharge: Fair Discharge Disposition: Discharge Home Discharge Time: <= 30 minutes Discharge Instructions DIET: Follow Instructions for: Heart Healthy Diet Activities you can perform: Regular-No Restrictions Cruz Sarabia MD Aug 16, 2017 12:38
--- NOTE | 2017-08-16 12:44 | HHI.GIFU ---
Subjective Remarks Pt resting in bed Reports she feels much better today Tolerating full liquid diet No BM since colonoscopy yesterday Denies nausea, vomiting Mild lower abdominal pain (Lora Jc) Objective Vitals I&O Vital Signs Date Time Temp Pulse Resp B/P (MAP) Pulse Ox O2 Delivery O2 Flow Rate FiO2 08/16/17 12:00 98.3 81 18 136/78 (97) 96 08/16/17 08:00 97.2 85 18 141/82 (101) 98 08/16/17 04:35 98.1 80 18 141/82 (101) 97 08/16/17 00:27 97.7 82 17 121/69 (86) 93 08/16/17 00:19 83 08/15/17 21:26 21 08/15/17 20:38 97.1 76 18 143/79 (100) 96 08/15/17 20:23 79 08/15/17 16:00 96.3 80 18 130/76 (94) 96 08/15/17 12:40 97.4 75 18 146/76 (99) 96 I/O 08/15/17 08/15/17 08/15/17 08/16/17 08/16/17 08/16/17 07:00 15:00 23:00 07:00 15:00 23:00 Intake Total 4260 ml 1000 ml 460 ml 1568 ml Balance 4260 ml 1000 ml 460 ml 1568 ml Intake Oral 1020 ml 600 ml 360 ml 360 ml IV Total 3240 ml 100 ml 100 ml 1208 ml Other 300 ml # Voids 8 2 2 5 # Bowel Movements 7 1 0 0 Laboratory Laboratory Tests Test 08/15/17 19:30 08/16/17 05:29 Potassium Level 2.9 3.1 Imaging Last Impressions Chest X-Ray 08/13/171654 Signed Impressions: Service Date/Time: Sunday, August 13, 2017 17:14 - CONCLUSION: No acute disease. Fabio Alford Jr., MD Abdomen/Pelvis CT 08/13/171654 Signed Impressions: Service Date/Time: Sunday, August 13, 2017 18:40 - CONCLUSION: 1. Abnormal mural thickening of the distal left colon, sigmoid colon and rectum with extensive heidy-colonic and heidy-rectal fat stranding and complex free fluid in the deep pelvis. Primary differential diagnosis is a distal colitis and proctitis. There is a reported history of ovarian cancer and cannot exclude tumor infiltration. This would be better evaluated colonoscopically. There is severe constipation and proximal colon which is dilated up to 8.5 cm in diameter. Miguel Ortega MD Physical Exam HEENT: Normocephalic; atraumatic CHEST: Even/unlabored CARDIAC: RRR ABDOMEN: Soft, nondistended, mild lower abdominal tenderness, bowel sounds active EXTREMITIES: No clubbing, cyanosis, or edema. SKIN: Normal; no rash; no jaundice. [employer] UND[employer]: No focal deficits; alert and oriented times three. (Lora Jc [facility]) Assessment and Plan Plan - Abd/constipation for the past 2 weeks- CT Abd/Pelvis w/ diffuse wall thickening consistent w/ colitis/proctitis, however possible tumor extension from h/o ovarian ca can't be excluded. States she hasn't had BM for almost 2 weeks. Took Mg Citrate at home 2 days ago with minimal relief. Now she is having liquid stools. She has chronic constipation especially with chronic use of hydrocodone and has been on a regimen of Trulance daily. The pain is in lower abd constant. Denies nausea, vomiting, hematemesis, GERD, hematochezia or melena. Pt resides in [place] and was scheduled to have colonoscopy in October. Last colonoscopy was 3 yrs ago with benign polyps. No previous hx of colitis. She has lost about 17 lbs in the past few months but intentional with diet. - Leukocytosis- secondary to above on abx - Anemia- no bleeding reported - AKF- possible secondary to above - Elevated LFTs- no previous hx of liver dz, possibly due to long used of Hydrocodone, she is not daily or heavy drinker, will order hepatitis panel and monitor - Ovarian CA s/p Hysterectomy/Chemo (), (08/16) --> Pt reports feeling much better today. Denies BM since colonoscopy yesterday. Denies nausea, vomiting. Mild lower abdominal pain. Colonoscopy noted --> Multiple large non-bleeding ulcers were found in the distal sigmoid colon. Biopsies taken. Reports chronic constipation at home. LFTs improving- hepatitis panel negative Plan: - SERGIO - Colon biopsy pending - Bowel regimen- Trulance outpatient - GI will sign off, please reconsult as needed - Have pt follow up with GI 1-2 weeks after discharge Pt has been seen and examined by myself and Dr. Calvo and this note is written on his behalf (Lora Jc) Physician Comments As above, okay to resume ASA. Stable from GI point of view for discharge. (Shana Calvo MD) Lora Jc Aug 16, 2017 12:44 Shana Calvo MD Aug 16, 2017 13:44
[2017-08-16] MEDS ORDERED: POTASSIUM CHLOR 20 MEQ PREMIX 100 ML IV ONE (13:15)
[2017-08-16] MEDS ORDERED: POTASSIUM CHLORIDE 10 MEQ CONTROLLED RELEASE TAB PO ONE (13:15)
--- NOTE | 2017-08-17 12:38 | PQ ---
Physician Query Response Document PATIENT: MABEL CAI : 1950 ADMIT DATE: 08/13/2017 8:53 PM DISCH DATE: 08/16/2017 9:50 PM RESPONDING PROVIDER #: [email or web address] QUERY TEXT: CDS Clarification Acute kidney Injury/failure present on admission in the setting of Sepsis treated with IVF bolus 1 l iter and maintance gtt @ 100cc/hr Other explanation of clinical findings. Unable to determine (no explanation for clinical findings). The patient's Clinical Indicators include: The medical record reflects the following clinical findings, treatment, and risk factors. * Clinical Indicators: Creat. 1.21--> 0.63 * Risk Factors: Sepsis, UTI * Treatment: IVF bolus 1 liter and maintance gtt @ 100cc/hr Please clarify and document your clinical opinion in the progress notes and discharge summary includi ng the definitive and/or presumptive diagnosis (suspected or probable), related to the above clinical findings. Please include clinical findings supporting your diagnosis. Thank you, Sonja Colvin RN CDS Ext: [id number] Query created by: Sonja Colvin on 08/16/2017 3:26 PM RESPONSE TEXT: Acute kidney injury. QUERY TEXT: CDS Clarification Opioid dependence in the setting of chronic pain treated with PO [place] Other explanation of clinical findings. Unable to determine (no explanation for clinical findings). The patient's Clinical Indicators include: The medical record reflects the following clinical findings, treatment, and risk factors. * Clinical Indicators:"chronic use of hydrocodone" order for q 4hr PRN * Risk Factors: Chronic pain * Treatment: PO [place] Please clarify and document your clinical opinion in the progress notes and discharge summary includi ng the definitive and/or presumptive diagnosis (suspected or probable), related to the above clinical findings. Please include clinical findings supporting your diagnosis. Thank you, Sonja Colvin RN CDS Ext: [phone] Query created by: Sonja Colvin on 08/16/2017 3:30 PM RESPONSE TEXT: Opioid-depended due to chronic back pain. Electronically signed by: Cruz Sarabia MD 08/17/2017 12:34 PM
== END 2017-08-16 21:50 | disposition home or self-care (01) | DRG 872 ==
LOC: NEPC 12:43 → NEDA 20:53 → N06B 21:27
PROVIDERS: ADMIT Internal Medicine; ATTEND Internal Medicine
PROC: 0DBN8ZX Excision of Sigmoid Colon, Via Natural or Artificial Opening Endoscopic, Diagnostic (ICD-10-PCS; principal; 2017-08-15 11:17)
DX: A41.9 Sepsis, unspecified organism (principal); N17.9 Acute kidney failure, unspecified; K63.3 Ulcer of intestine; N39.0 Urinary tract infection, site not specified; I10 Essential (primary) hypertension; E78.5 Hyperlipidemia, unspecified; M19.90 Unspecified osteoarthritis, unspecified site; D64.9 Anemia, unspecified; E87.6 Hypokalemia; K52.9 Noninfective gastroenteritis and colitis, unspecified; K59.09 Other constipation; R31.9 Hematuria, unspecified; G89.29 Other chronic pain; M54.9 Dorsalgia, unspecified; R20.2 Paresthesia of skin; Z23 Encounter for immunization; Z88.2 Allergy status to sulfonamides; Z86.73 Personal history of transient ischemic attack (TIA), and cerebral infarction without residual deficits; Z85.43 Personal history of malignant neoplasm of ovary; Z92.21 Personal history of antineoplastic chemotherapy; Z87.891 Personal history of nicotine dependence; Z79.82 Long term (current) use of aspirin
CPT/HCPCS: 71045; 74177; 80053; 80074; 81001; 83690; 83735; 84132; 85025; 88305; 90732; 93005; 96365; 96366; 96368; J0696; J2543; J3370; J3480; J7030; J7040; Q9967